=== PATIENT | male | born 1950 | race Caucasian/White ===

== ENCOUNTER 2017-06-27 10:52 | Inpatient (IN) | payer MEDICARE, BC ==
[~2017-06-27] VITALS: Ht 172.7 cm; Wt 77.0 kg
[2017-06-27] VITALS (11 sets, daily range): BP systolic 111–163; BP diastolic 59–90; PULSE 18–145; RESP 18–24; TEMP 98.1–98.4; O2SAT 93–100
[2017-06-27] MEDS ORDERED: AMIODARONE INJ 150 MG in DEXTROSE 5% IN WATER 100ML INJ 100 ML IV ONE ×2 (11:28)
[2017-06-27] MEDS ORDERED: FOLI800T PO (11:30)
[2017-06-27] MEDS ORDERED: TORS20TA PO (11:30)
[2017-06-27] MEDS ORDERED: METO50TA11 PO (11:30)
[2017-06-27] MEDS ORDERED: FERR325T8 PO (11:30)
[2017-06-27] MEDS ORDERED: ATOR40TA16 PO (11:30)
[2017-06-27] MEDS ORDERED: OMEP20TA PO (11:30)
[2017-06-27] MEDS ORDERED: COUM5TAB PO (11:30)
[2017-06-27] MEDS ORDERED: ASPI81CH CHEW (11:30)
[2017-06-27] MEDS ORDERED: LISI2.5T3 PO (11:30)
[2017-06-27] MEDS: SODIUM CHLORIDE 0.9% FLUSH 10 ML FLUSH IVF PRN ×2 (11:41→12:11)
[2017-06-27 11:55] LABS: AUTOMATED NEUTROPHIL # 4.1 TH/MM3 (1.8-7.7); BASOPHIL # 0.1 TH/MM3 (0-0.2); BASOPHIL % 0.9 % (0.0-2.0); EOSINOPHIL # 0.1 TH/MM3 (0-0.4); EOSINOPHIL % 0.9 % (0.0-4.0); HEMATOCRIT 36.6 % (39.0-51.0); LYMPH % 12.7 % (9.0-44.0); LYMPHOCYTE # 1.1 TH/MM3 (1.0-4.8); MEAN CORPUSCULAR HEMOGLOBIN 30.2 PG (27.0-34.0); MEAN CORPUSCULAR HGB CONC 33.6 % (32.0-36.0); MONO % 36.7 % (0.0-8.0); NEUT % 48.8 % (16.0-70.0); PLATELET COUNT 149 TH/MM3 (150-450); RED BLOOD COUNT 4.06 MIL/MM3 (4.50-5.90); RED CELL DISTRIBUTION WIDTH 13.6 % (11.6-17.2); WHITE BLOOD COUNT 8.3 TH/MM3 (4.0-11.0)
[2017-06-27 11:58] LABS: HEMO FLAGS AUTO DIFF
[2017-06-27 12:02] LABS: APTT (PATIENT) 37.8 SEC (24.3-30.1); INTERNATIONAL NORMALIZED RATIO 2.5 RATIO; PROTHROMBIN TIME - PATIENT 28.8 SEC (9.8-11.6)
[2017-06-27] MEDS: AMIODARONE INJ 450 MG in DEXTROSE 5% IN WATE(EXCEL) INJ 241 ML IV SCH ×4 (12:08→19:13)
[2017-06-27 12:16] LABS: ANION GAP 8 MEQ/L (5-15); BICARBONATE 30.7 MEQ/L (21.0-32.0); BLOOD UREA NITROGEN 64 MG/DL (7-18); CHLORIDE 96 MEQ/L (98-107); GLOMERULAR FILTRATION RATE 29 ML/MIN (>89); MAGNESIUM 2.9 MG/DL (1.5-2.5); POTASSIUM 3.4 MEQ/L (3.5-5.1); SODIUM (NA) 135 MEQ/L (136-145)
[2017-06-27 12:21] LABS: CREATINE KINASE 117 U/L (39-308)
[2017-06-27 12:32] LABS: BANDS 1 % (0-6); NEUTROPHIL # MANUAL DIFF 4.3 TH/MM3 (1.8-7.7); POLYS (SEG NEUTROPHILS) 51 % (16-70); WBC DIFF SAMPLE 100
[2017-06-27 12:34] LABS: CKMB 1.6 NG/ML (0.5-3.6); OVALOCYTES 1+ (NORMAL)
[2017-06-27 12:35] LABS: PLATELET ESTIMATE SMEAR NORMAL (NORMAL); PLATELET MORPHOLOGY NORMAL (NORMAL); SCAN/DIFF FINAL DIFF MANUAL
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
--- NOTE | 2017-06-27 13:27 | PD ---
HPI Chief Complaint: Cardiac Complaint Time Seen by Provider: 11:24 Travel History International Travel<30 days: No Contact w/Intl Traveler<30days: No Traveled to known affect area: No History of Present Illness HPI 66-year-old male came to the emergency room with history of shortness of breath and near syncopal episode since yesterday. Patient told me that he has tachycardia. He has ejection fraction of 33% and is waiting to get an AICD. He sees Dr. Arreola and was on amiodarone but they held his amiodarone about 4 weeks ago or so that they can do a procedure. He has had this tachycardia in the past. His heart rate was in 1 teens and had multiple bizarre complexes. No history of chest pain. No history of syncopal episode. He is awake and answering questions appropriately. He appears to be in moderate distress. Patient denies any coronary artery disease history. He also says that he has a care team in [place]. Patient has a [facility] valve and is on Coumadin. He says last week his INR was 3. PFSH Past Medical History Narrative Medical List of his past medical, surgical, social and family history is reviewed from the nursing note. Hx Anticoagulant Therapy: Yes Atrial Fibrillation: Yes Heart Rhythm Problems: Yes Cardiac Catheterization: Yes Cardiomyopathy: Yes Cardiovascular Problems: Yes Patient Takes Glucophage: No Past Surgical History AICD: Yes Valve Replacement: Yes Social History Alcohol Use: Yes (social) Tobacco Use: No Allergies-Medications (Allergen,Severity, Reaction): Coded Allergies: No Known Allergies (Verified Allergy, Unknown, 06/27/17) Comments No known drug allergies. Reported Meds & Prescriptions Reported Meds & Active Scripts Active Reported Torsemide 20 Mg Tab 20 Mg PO BID Coumadin (Warfarin) 5 Mg Tab 5 Mg PO DAILY Omeprazole 20 Mg Tab 20 Mg PO DAILY Metoprolol Succinate ER 24 HR (Metoprolol Succinate) 50 Mg Tab 50 Mg PO DAILY Lisinopril 2.5 Mg Tab 2.5 Mg PO DAILY Folic Acid 0.8 Mg Tab 800 Mcg PO DAILY Ferrous Sulfate 325 Mg (65 Mg Iron) Tablet 325 Mg PO BIDPC Atorvastatin (Atorvastatin Calcium) 40 Mg Tab 40 Mg PO HS Aspirin 81 Mg Chew 81 Mg CHEW DAILY Narrative Medication List of his home medications as reviewed from the nursing note. Review of Systems Except as stated in HPI: all other systems reviewed are Neg Physical Exam Narrative GENERAL: Awake, alert, moderate distress SKIN: Focused skin assessment warm/dry. Pale HEAD: Atraumatic. Normocephalic. EYES: Pupils equal and round. No scleral icterus. No injection or drainage. ENT: No nasal bleeding or discharge. Mucous membranes pink and moist. NECK: Trachea midline. No JVD. CARDIOVASCULAR: Irregular rhythm, tachycardia. No murmur appreciated. RESPIRATORY: No accessory muscle use. Clear to auscultation. Breath sounds equal bilaterally. GASTROINTESTINAL: Abdomen soft, non-tender, nondistended. Hepatic and splenic margins not palpable. MUSCULOSKELETAL: No obvious deformities. No clubbing. No cyanosis. No edema. NEUROLOGICAL: Awake and alert. No obvious cranial nerve deficits. Motor grossly within normal limits. Normal speech. PSYCHIATRIC: Appropriate mood and affect; insight and judgment normal. Data Data Last Documented VS Orders Orders Electrocardiogram (06/27/17 11:28) Basic Metabolic Panel (Bmp) (06/27/17 11:28) Ckmb (Isoenzyme) Profile (06/27/17 11:28) Complete Blood Count With Diff (06/27/17 11:28) Magnesium (Mg) (06/27/17 11:28) Prothrombin Time / Inr (Pt) (06/27/17 11:28) Act Partial Throm Time (Ptt) (06/27/17 11:28) Troponin I (06/27/17 11:28) Chest, Single Ap (06/27/17 11:28) Ecg Monitoring (06/27/17 11:28) Bilateral Bp Monitoring (06/27/17 11:28) Iv Access Insert/Monitor (06/27/17 11:28) Oximetry (06/27/17 11:28) Oxygen Administration (06/27/17 11:28) Sodium Chloride 0.9% Flush (Ns Flush) (06/27/17 11:30) ^ Medication Alert (06/27/17 11:28) ^ Discontinue (06/27/17 11:28) Dextrose 5% In Wate... W/Amiodarone Inj (06/27/17 11:28) Dextrose 5% In Wate... W/Amiodarone Inj (06/27/17 11:38) Vital Signs (Adult) JAY.Q4H (06/27/17 11:28) CKMB (06/27/17 11:30) CKMB% (06/27/17 11:30) Consult Cardiology (06/27/17 ) NPO (06/27/17 12:54) Admit Order (Ed Use Only) (06/27/17 12:55) Labs Laboratory Tests Test 06/27/17 11:30 White Blood Count 8.3 TH/MM3 Red Blood Count 4.06 MIL/MM3 Hemoglobin 12.3 GM/DL Hematocrit 36.6 % Mean Corpuscular Volume 90.0 FL Mean Corpuscular Hemoglobin 30.2 PG Mean Corpuscular Hemoglobin Concent 33.6 % Red Cell Distribution Width 13.6 % Platelet Count 149 TH/MM3 Mean Platelet Volume 9.7 FL Neutrophils (%) (Auto) 48.8 % Lymphocytes (%) (Auto) 12.7 % Monocytes (%) (Auto) 36.7 % Eosinophils (%) (Auto) 0.9 % Basophils (%) (Auto) 0.9 % Neutrophils # (Auto) 4.1 TH/MM3 Lymphocytes # (Auto) 1.1 TH/MM3 Monocytes # (Auto) 3.0 TH/MM3 Eosinophils # (Auto) 0.1 TH/MM3 Basophils # (Auto) 0.1 TH/MM3 CBC Comment AUTO DIFF Differential Total Cells Counted 100 Neutrophils % (Manual) 51 % Band Neutrophils % 1 % Lymphocytes % 10 % Monocytes % 38 % Neutrophils # (Manual) 4.3 TH/MM3 Differential Comment FINAL DIFF MANUAL Platelet Estimate NORMAL Platelet Morphology Comment NORMAL Ovalocytes 1+ Prothrombin Time 28.8 SEC Prothromb Time International Ratio 2.5 RATIO Activated Partial Thromboplast Time 37.8 SEC Blood Urea Nitrogen 64 MG/DL Creatinine 2.28 MG/DL Random Glucose 138 MG/DL Calcium Level 9.3 MG/DL Magnesium Level 2.9 MG/DL Sodium Level 135 MEQ/L Potassium Level 3.4 MEQ/L Chloride Level 96 MEQ/L Carbon Dioxide Level 30.7 MEQ/L Anion Gap 8 MEQ/L Estimat Glomerular Filtration Rate 29 ML/MIN Total Creatine Kinase 117 U/L Creatine Kinase MB 1.6 NG/ML Troponin I 0.03 NG/ML MDM Medical Decision Making Medical Screen Exam Complete: Yes Emergency Medical Condition: Yes Medical Record Reviewed: Yes Interpretation(s) Twelve-lead EKG was reviewed by me. Unknown rhythm, polymorphic PVCs, tachycardia. Heart rate of 120 bpm. Differential Diagnosis Electrolyte abnormality, ACS, arrhythmia, nonsustained VT's Narrative Course 1 PM patient was having nonsustained VT's initially based on his history I started him on amiodarone bolus and drip. I went back and reassessed him a little while ago. His heart rate was down in the 80s to 90s although when he got excited while talking it went up to 1 teens again. But he says he has been feeling better. I discussed the case with Dr. Arreola who is his animal herder and he agreed with the plan. He wanted the coffee plantation worker Dr. Santiago to be consulted. I mentioned that he should get his AICD placed this time and he agreed. I discussed the case with the family and consumer sciences professor was accepted. Patient will go to CICU. Critical Care Narrative Aggregate critical care time was 60 minutes. Time to perform other separately billable procedures was not included in the critical care time. My time did not include minutes spent treating any other patients simultaneously or on activities that did not directly contribute to the patient's treatment. The services I provided to this patient were to treat and/or prevent clinically significant deterioration that could result in: Polymorphic PVCs, nonsustained VT his, amiodarone bolus and drip I provided critical care services requiring my management, as noted below: Chart data review, documentation time, medication orders and management, vital sign assessments/reviewing monitor data, ordering and reviewing lab tests, ordering and interpreting/reviewing x-rays and diagnostic studies, care of the patient and discussion of the patient with the admitting physicians. Procedures EKG Prior to Arrival: No Physician Communication Physician Communication Dr. Arreola Diagnosis Primary Impression: Multifocal PVCs with pairing Additional Impressions: NSVT (nonsustained ventricular tachycardia) Tachycardia, unspecified Renal insufficiency Admitting Information Admitting Physician Requests: Admit Scripts Potassium Chloride ER (Potassium Chloride ER) 20 Meq Tab 20 MEQ PO BID for Electrolyte Replacement, #60 TAB 0 Refills Prov: Nils Lilly MD R2 06/30/17 Allopurinol (Allopurinol) 100 Mg Tab 100 MG PO DAILY for Gout, #30 TAB 0 Refills Prov: Nils Lilly MD R2 06/30/17 Warfarin (Coumadin) 5 Mg Tab 5 MG PO DAILY@1600 for 30 Days, #30 TAB Prov: Nils Lilly MD R2 06/30/17 Amiodarone (Amiodarone) 200 Mg Tab 200 MG PO DAILY for 30 Days, #30 TAB Take 200mg daily starting on 07/06 Prov: Micaela Xiao MD R2 06/30/17 Amiodarone (Amiodarone) 200 Mg Tab 400 MG PO BID for 6 Days, #24 TAB Take 400mg BID; last day on 07/05 Prov: Micaela Xiao MD R2 06/30/17 Lety Gold MD Jun 27, 2017 13:27
--- NOTE | 2017-06-27 13:28 | RADRPT ---
EXAM DATE/TIME: 06/27/2017 12:02 [facility] COMPARISON: No previous studies available for comparison. INDICATIONS : Chest pain, shortness of breath. MEDICAL HISTORY : None. SURGICAL HISTORY : Aortic valve replacement. ENCOUNTER: Initial ACUITY: 1 day PAIN SCORE: 6/10 LOCATION: Bilateral chest FINDINGS: There is advanced cardiomegaly. The patient is post median sternotomy. There are mild bronchiectatic changes in the perihilar regions bilaterally. The lungs are otherwise clear. The bony structures are intact. CONCLUSION: 1. Moderate cardiomegaly. Patient is post median sternotomy. The middle sternal wires no longer intac t Casimiro Amaya MD on June 27, 2017 at 13:18 Board Certified Radiologist. This report was verified electronically.
[2017-06-27] MEDS ORDERED: NALOXONE HCL 0.4 MG/ML AMP IV PUSH PRN (13:30)
[2017-06-27] MEDS ORDERED: LACTULOSE SYRUP 20 GM/30 ML CUP PO PRN (13:30)
[2017-06-27] MEDS ORDERED: SENNOSIDES 8.6 MG TAB PO PRN (13:30)
[2017-06-27] MEDS ORDERED: ACETAMINOPHEN 325 MG TAB PO PRN (13:30)
[2017-06-27] MEDS ORDERED: BISACODYL 10 MG SUPP RECTAL PRN (13:30)
[2017-06-27] MEDS ORDERED: SODIUM CHLORIDE 0.9% FLUSH 10 ML FLUSH IV FLUSH PRN (13:30)
[2017-06-27] MEDS ORDERED: ONDANSETRON HCL 4 MG/2 ML VIAL IVP PRN (13:30)
[2017-06-27] MEDS ORDERED: MAGNESIUM HYDROXIDE SUSP 30 ML CUP PO PRN (13:30)
[2017-06-27] MEDS ORDERED: SODIUM CHLORID 0.9% 500 ML INJ 500 ML IV ONE (13:45)
[2017-06-27] MEDS ORDERED: POTASSIUM CHLORIDE 10 MEQ CONTROLLED RELEASE TAB PO ONE (14:00)
[2017-06-27] MEDS: SODIUM CHLOR 0.9% 1000 ML INJ 1,000 ML IV SCH ×2 (14:03→20:53)
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
[2017-06-27] MEDS: FERROUS SULFATE 325 MG (65 MG ELEMENTAL IRON) TAB PO SCH (18:03)
[2017-06-27] MEDS: DOCUSATE SODIUM 50 MG/SENNA 8.6 MG TAB PO SCH (20:53)
[2017-06-27] MEDS: SODIUM CHLORIDE 0.9% FLUSH 10 ML FLUSH IV FLUSH SCH (20:53)
[2017-06-27] MEDS: ATORVASTATIN 40 MG TAB PO SCH (20:53)
[2017-06-27] MEDS ORDERED: TORSEMIDE 20 MG TAB PO SCH (21:00)
[2017-06-28] VITALS (13 sets, daily range): BP systolic 96–136; BP diastolic 61–87; PULSE 60–88; RESP 14–31; TEMP 97–98; O2SAT 93–100
[2017-06-28] MEDS: AMIODARONE INJ 450 MG in DEXTROSE 5% IN WATE(EXCEL) INJ 241 ML IV SCH ×6 (02:48→17:58)
[2017-06-28 05:13] LABS: PROTHROMBIN TIME - PATIENT 23.1 SEC (9.8-11.6)
[2017-06-28 05:18] LABS: AUTOMATED NEUTROPHIL # 3.1 TH/MM3 (1.8-7.7); BASOPHIL # 0.1 TH/MM3 (0-0.2); BASOPHIL % 0.8 % (0.0-2.0); EOSINOPHIL # 0.1 TH/MM3 (0-0.4); EOSINOPHIL % 1.3 % (0.0-4.0); HEMATOCRIT 32.2 % (39.0-51.0); LYMPH % 16.4 % (9.0-44.0); LYMPHOCYTE # 1.1 TH/MM3 (1.0-4.8); MEAN CELL VOLUME 90.4 FL (80.0-100.0); MEAN CORPUSCULAR HEMOGLOBIN 30.8 PG (27.0-34.0); MEAN CORPUSCULAR HGB CONC 34.1 % (32.0-36.0); NEUT % 47.5 % (16.0-70.0); PLATELET COUNT 116 TH/MM3 (150-450); RED BLOOD COUNT 3.56 MIL/MM3 (4.50-5.90)
[2017-06-28 05:29] LABS: BICARBONATE 30.2 MEQ/L (21.0-32.0); MAGNESIUM 2.8 MG/DL (1.5-2.5); POTASSIUM 3.8 MEQ/L (3.5-5.1); URIC ACID 12.3 MG/DL (2.6-7.2)
[2017-06-28 05:31] LABS: HEMO FLAGS AUTO DIFF
[2017-06-28 07:12] LABS: OVALOCYTES 1+ (NORMAL)
[2017-06-28 07:13] LABS: SCAN/DIFF AUTO DIFF CONFIRMED
[2017-06-28] MEDS ORDERED: HEPARIN-D5W 25,000 U/250 ML 250 ML IV PRN (08:30)
[2017-06-28 08:40] LABS: AUTOMATED NEUTROPHIL # 3.1 TH/MM3 (1.8-7.7); BASOPHIL # 0.1 TH/MM3 (0-0.2); EOSINOPHIL # 0.1 TH/MM3 (0-0.4); EOSINOPHIL % 1.2 % (0.0-4.0); LYMPH % 17.1 % (9.0-44.0); LYMPHOCYTE # 1.1 TH/MM3 (1.0-4.8); MEAN CELL VOLUME 90.6 FL (80.0-100.0); MEAN CORPUSCULAR HEMOGLOBIN 30.6 PG (27.0-34.0); MEAN CORPUSCULAR HGB CONC 33.7 % (32.0-36.0); MONO % 33.5 % (0.0-8.0); NEUT % 47.2 % (16.0-70.0); PLATELET COUNT 130 TH/MM3 (150-450); RED BLOOD COUNT 3.75 MIL/MM3 (4.50-5.90); RED CELL DISTRIBUTION WIDTH 13.7 % (11.6-17.2); WHITE BLOOD COUNT 6.6 TH/MM3 (4.0-11.0)
[2017-06-28 08:46] LABS: HEMO FLAGS AUTO DIFF
[2017-06-28] MEDS ORDERED: WARFARIN SOD 5 MG TAB PO SCH (09:00)
[2017-06-28] MEDS: FERROUS SULFATE 325 MG (65 MG ELEMENTAL IRON) TAB PO SCH ×2 (09:00→18:00)
[2017-06-28] MEDS: FOLIC ACID 1 MG TAB PO SCH (09:00)
[2017-06-28] MEDS: PANTOPRAZOLE SOD 20 MG DELAYED RELEASE TAB PO SCH (09:00)
[2017-06-28] MEDS ORDERED: ASPIRIN 81 MG CHEW TAB CHEW SCH (09:00)
[2017-06-28] MEDS ORDERED: PILL SPLITTER OTHER PRN (09:00)
[2017-06-28] MEDS: SODIUM CHLORIDE 0.9% FLUSH 10 ML FLUSH IV FLUSH SCH ×2 (09:00→19:58)
[2017-06-28] MEDS ORDERED: LISINOPRIL 5 MG TAB PO SCH (09:00)
[2017-06-28] MEDS: DOCUSATE SODIUM 50 MG/SENNA 8.6 MG TAB PO SCH ×2 (09:00→19:58)
[2017-06-28 09:09] LABS: WHITE BLOOD COUNT 6.5 TH/MM3 (4.0-11.0)
[2017-06-28] MEDS: TORSEMIDE 20 MG TAB PO SCH ×2 (10:09→17:59)
[2017-06-28] MEDS: METOPROLOL SUCCINATE 50 MG EXTENDED RELEASE TAB PO SCH (10:10)
[2017-06-28] MEDS: LISINOPRIL 5 MG TAB PO SCH (10:10)
[2017-06-28 10:48] LABS: HEMOGLOBIN A1a 0.7 %; HEMOGLOBIN A1b 1.6 %; HEMOGLOBIN Ao 84.9 %; HEMOGLOBIN LA1C 2.5 %; HEMOGLOBIN P3 5.8 %
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
--- NOTE | 2017-06-28 12:05 | EKG ---
Date Performed: 06/27/2017 Time Performed: 11:23:09 PTAGE: 66 years EKG: Atrial fibrillation with increased ventricular rate Ventricular premature beats and also gonzalez spect Amanda phenomenon Nonspecific intraventricular conduction delay NO PREVIOUS TRACING DOCTOR: Celestine Dietz Interpretating Date/Time 06/28/2017 12:05:00
--- NOTE | 2017-06-28 12:05 | EKG ---
Date Performed: 06/27/2017 Time Performed: 16:10:13 PTAGE: 66 years EKG: Atrial fibrillation with increased ventricular rate Ventricular premature beats and also gonzalez spect Amanda phenomenon Nonspecific intraventricular conduction delay PREVIOUS TRACING : 06/27/2017 11.23 Compared to prior tracing no significant change DOCTOR: Celestine Dietz Interpretating Date/Time 06/28/2017 12:05:47
--- NOTE | 2017-06-28 12:07 | EKG ---
Date Performed: 06/27/2017 Time Performed: 18:44:43 PTAGE: 66 years EKG: Atrial fibrillation with controlled ventricular rate Ventricular premature complexes Intrav entricular conduction delay PREVIOUS TRACING 05/27/17 Compared to the prior tracing, the rate is better controlled th e ventricular ectopy is less DOCTOR: Celestine Dietz Interpretating Date/Time 06/28/2017 12:06:46
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
[2017-06-28] MEDS ORDERED: HEPARIN SODIUM - IV 10,000 UNITS/10 ML VIAL IV PRN (14:30)
[2017-06-28] MEDS ORDERED: HEPARIN - 10,000 UNITS/ML IV ADDITIVE IV PRN (14:30)
[2017-06-28] MEDS ORDERED: WARFARIN SOD 7.5 MG TAB PO ONE (16:00)
[2017-06-28] MEDS: ATORVASTATIN 40 MG TAB PO SCH (19:58)
[2017-06-28] MEDS ORDERED: TEMAZEPAM 7.5 MG CAP PO ONE (22:45)
[2017-06-29] VITALS (17 sets, daily range): BP systolic 89–115; BP diastolic 57–71; PULSE 56–83; RESP 12–24; TEMP 97.1–98.4; O2SAT 96–100
[2017-06-29] MEDS: AMIODARONE INJ 450 MG in DEXTROSE 5% IN WATE(EXCEL) INJ 241 ML IV SCH ×4 (02:15→16:43)
[2017-06-29 05:17] LABS: HEMATOCRIT 32.2 % (39.0-51.0); MEAN CELL VOLUME 90.6 FL (80.0-100.0); MEAN CORPUSCULAR HEMOGLOBIN 30.2 PG (27.0-34.0); MEAN CORPUSCULAR HGB CONC 33.4 % (32.0-36.0); PLATELET COUNT 113 TH/MM3 (150-450); RED BLOOD COUNT 3.55 MIL/MM3 (4.50-5.90); RED CELL DISTRIBUTION WIDTH 13.9 % (11.6-17.2); REVIEW FLAG FINAL; WHITE BLOOD COUNT 5.6 TH/MM3 (4.0-11.0)
[2017-06-29 05:30] LABS: APTT (PATIENT) 34.8 SEC (24.3-30.1); INTERNATIONAL NORMALIZED RATIO 1.8 RATIO; PROTHROMBIN TIME - PATIENT 20.4 SEC (9.8-11.6)
[2017-06-29 05:47] LABS: BICARBONATE 31.1 MEQ/L (21.0-32.0)
[2017-06-29] MEDS ORDERED: ceFAZolin INJ 1,000 MG VIAL ONE (07:50)
[2017-06-29] MEDS ORDERED: LIDOCAINE HCL 2% 50 ML VIAL ONE ×2 (07:50→08:04)
[2017-06-29] MEDS ORDERED: VANCOMYCIN HCL 1000 MG VIAL ONE (07:50)
[2017-06-29] MEDS ORDERED: VANCOMYCIN 500 MG VIAL ONE (07:50)
[2017-06-29] MEDS ORDERED: PROPOFOL 200 MG/20 ML AMP ONE ×2 (07:52→08:26)
[2017-06-29] MEDS ORDERED: MIDAZOLAM HCL 2 MG/2 ML VIAL ONE (07:52)
[2017-06-29] MEDS ORDERED: PHENYLEPH/NS 1000 MCG/10 ML SYR ONE (07:52)
[2017-06-29] MEDS ORDERED: ePHEDrine/NS 25 MG/5 ML SYR ONE ×2 (07:53→08:40)
[2017-06-29] MEDS ORDERED: LIDOCAINE HCL 2% 100 MG/5 ML SYRINGE ONE (08:43)
[2017-06-29] MEDS ORDERED: PHENYLEPHRINE HCL 10 MG/ML VIAL ONE (08:51)
[2017-06-29] MEDS: FERROUS SULFATE 325 MG (65 MG ELEMENTAL IRON) TAB PO SCH ×2 (09:00→16:57)
[2017-06-29] MEDS ORDERED: ACETAMINOPHEN/CODEINE 300 MG/30 MG TAB PO PRN ×2 (09:00)
[2017-06-29] MEDS: PANTOPRAZOLE SOD 20 MG DELAYED RELEASE TAB PO SCH (09:00)
[2017-06-29] MEDS ORDERED: ONDANSETRON HCL 4 MG/2 ML VIAL IV PUSH PRN (09:00)
[2017-06-29] MEDS: FOLIC ACID 1 MG TAB PO SCH (09:00)
[2017-06-29] MEDS: TORSEMIDE 20 MG TAB PO SCH ×2 (09:00→16:57)
[2017-06-29] MEDS: DOCUSATE SODIUM 50 MG/SENNA 8.6 MG TAB PO SCH ×2 (09:00→21:32)
[2017-06-29] MEDS: LISINOPRIL 5 MG TAB PO SCH (09:00)
[2017-06-29] MEDS: SODIUM CHLORIDE 0.9% FLUSH 10 ML FLUSH IV FLUSH SCH ×2 (09:00→21:00)
[2017-06-29] MEDS ORDERED: TEMAZEPAM 15 MG CAP PO PRN (09:00)
[2017-06-29] MEDS: AMIODARONE 200 MG TAB PO SCH ×2 (09:00→21:32)
[2017-06-29] MEDS: METOPROLOL SUCCINATE 50 MG EXTENDED RELEASE TAB PO SCH (09:00)
--- NOTE | 2017-06-29 09:02 | CATHPROC ---
Vacation Your Way HIS Report Study Information Study Number Scheduled Start Study Start [id number] 06/29/2017 Jun 29 2017 7:46AM Referring Institution Admit Source Facility Department 1 Other [facility] Office Rn Physician and Clinical Staff Initial Jessie Sims Medical Referral Coordinator Sim Mcgrath,RT(R) Other Anesthesia, WIND UP OPERATOR Recorder Sara Gonzalez,CAMPOSRBatsheva Scrub Elena Vasquez,RT(R) TECH2 Procedures Performed Procedure Cardioversion Lead Insertion Equipment Time Metal Milling Machine Operator Description Size Mfg Part Number Used/Scraped [employer]/ EP DEFIBRILLATOR, EMBLEM MRI S- 08:46 A219 Used PACER ICD [employer]/ EP 08:25 LEAD, EMBLEM S-ICD 45CM 45CM 3401 Used PACER DERMABOND, ADHESIVE SKIN [id number] 08:01 CORDIS/PACER * Used GLUE MINI *[id number] 08:01 ITC INDUSTRIES SUTURE, STRIP PLUS 1/2" * Used *[id number] 08:01 MEDLINE PACER ASHRAF, LIMB * 2530 *[id number] Used [id number] 08:01 MEDLINE PACER PACK, PACER CUSTOM * Used *[id number] 08:07 Needle Sponge Count 2 2 Used 08:08 Needle Sponge Count 2 22 Used 08:39 Needle Sponge Count 2 22 Used 08:50 Needle Sponge Count 2 22 Used 08:50 Needle Sponge Count 20 200 Used 08:07 Needle Sponge Count 20 200 Used 08:39 Needle Sponge Count 20 200 Used 08:39 Needle Sponge Count 4 4 Used 08:18 Needle Sponge Count 4 4 Used 08:50 Needle Sponge Count 4 4 Used SUTURE, 0 ETHIBOND [CT1] ([id number]), 8pk SUTURE, 2-0 VICRYL [CT1] ([id number]) SUTURE, 2-0 VICRYL [CT1] ([id number]) [id number] 08:01 [employer],WARM AIR CCL * Used *[id number] [facility] PAD, ELECTROSURGICAL 08:01 * [id number] *[id number] Used SURGICAL GROUNDING ORANGE [id number] 08:01 [employer]SELL. ELECTRODE, PRO-PADZ BIPHASIC * Used *[id number] Equipment Model, Serial, Lot Number and Expiration Data Description Model Number Serial Number Lot Number Expiration Date DEFIBRILLATOR, EMBLEM MRI S- [id number] [id number] 03-01-2019 ICD LEAD, EMBLEM S-ICD 45CM 3401 [id number] 12-01-2018 History: Current Medications Medication Dosage/Unit Route Frequency Last Date/Time Taken LISINOPRIL LOPRESSOR Statins (any) ASA Coumadin History: Allergies Allergy Reaction NKDA History: Risk Factors Hypertension Dyslipidemia Previous NE Previous Heart Failure Yes Yes Yes Yes History: Symptoms/Diagnosis Selection Items Palpitations SOB Medication Medication Total Dose (Bolus/Oral) Medication Total Dosage/Unit 2% XYLOCAINE 50 mL LIDOCAINE 100 mg Medications (Bolus/Oral) Medication Time Given Dosage/Unit Administered By Reason 2% XYLOCAINE 06/29/2017 8:20:12 AM 50 mL Jessie Santiago For pain 50 mL 2% XYLOCAINE given in lab by Jessie Santiago via Subcutaneous. Ordered by Jessie Santiago. Reason: For pain. left chest LIDOCAINE 06/29/2017 8:43:36 AM 50 mg Anesthesia, WIND UP OPERATOR As per physicians ve rbal order 50 mg LIDOCAINE given in lab by Anesthesia, WIND UP OPERATOR in Left Antecubital via Peripheral IV. Ordered by Jessie Rincon. Reason: As per physicians verbal order. LIDOCAINE 06/29/2017 8:50:55 AM 50 mg Anesthesia, WIND UP OPERATOR As per physicians ve rbal order 50 mg LIDOCAINE given in lab by Anesthesia, WIND UP OPERATOR in Left Antecubital via Peripheral IV. Ordered by Jessie Rincon. Reason: As per physicians verbal order. Medication (Drip) Medication Time Given Dosage/Unit Concentration/Unit Diluent (ml) Solution Amiodarone Drip 06/29/2017 7:52:49 AM 0.5 mg/min 450 mg 250 D5W Patient arrived on 0.5 mg/min Amiodarone Drip in Left Antecubital via Peripheral IV. Pump/Drip Flow = 16.67 ml/hr using D5W with a concentration of 450 mg in 250 ml. Ordered by Jessie Santiago. Reason: As per physicians verbal order. ANCEF 06/29/2017 8:00:00 AM 2 g 2 g ANCEF given in lab by Anesthesia, WIND UP OPERATOR in Left Antecubital via Peripheral IV. Ordered by Naty Santiago. Reason: As per physicians verbal order. IV Solutions 06/29/2017 7:53:17 AM 0 mL (IV) NaCl .9 Patient arrived on IV Solutions given by Anesthesia, WIND UP OPERATOR in Left Antecubital via Peripheral IV. Pump /Drip Flow = 50 ml/hr using NaCl .9. Ordered by Jessie Santiago. VANCOMYCIN DRIP 06/29/2017 8:00:01 AM 1 g 1 g VANCOMYCIN DRIP given in lab by Anesthesia, WIND UP OPERATOR in Left Antecubital via Peripheral IV. Ordered b y Jessie Santiago. Reason: As per physicians verbal order. Initial Case Assessment Cardiovascular HR NIBP 76 125/67 Edema Present Skin color Skin None Normal Warm Dry Neurological State Oriented to time-place- Alert Moves all extremities person Respiration - General Respiration Rate SpO2 (%) (B/min) 18 100 Final Case Assessment Cardiovascular HR NIBP 66 103/57 Edema Present Skin color Skin None Normal Warm Dry Neurological State Oriented to time-place- Alert Moves all extremities person Respiration - General Respiration Rate SpO2 (%) (B/min) 18 100 Chronological Log Time Study Chronological Log 7:40:00 Patient arrived via Bed. 7:42:00 Patient Name, D.O.B, / Armband Verified By R.N. 7:43:00 Anesthesia at bedside. Assumes care of patient. Darrius OWENS 7:50:25 Consent signed by the physician and the patient and verified by the Office Rn staff. 7:50:29 Pre-op and post- op instructions given; patient acknowledges understanding of instructions. 7:50:32 Verbal Stimulation=2 Physical Stimulation=2 Airway=2 Respiration=2 TOTAL=10. (0=absent, 1=l imited, 2=present) 7:51:20 Presedation assessment performed by Office Rn RN. 7:51:23 Patient has been NPO for More than 6Hrs. 7:51:25 Skin Breakdown- none 7:51:34 Patient Warmer Placed on the Table. 7:51:36 Disposable Defibrillator Pads Placed On Patient. 7:51:39 Joseph Prominences Protected 7:52:09 A # 20 IV was noted in the Antecubital (left). Grade = ~GRADE~ Assessment: Initial Case, HR=76 BPM, FYHO=459/67 mmhg, Edema=None, Color=Normal, Skin = Warm, Dr y 7:52:21 Neurological: State=Alert, Ox3, DYE Respiration: Resp=18 B/min, XyX8=601 % Patient arrived on 0.5 mg/min Amiodarone Drip in Left Antecubital via Peripheral IV. Pump/Drip F low = 16.67 ml/hr 7:52:49 using D5W with a concentration of 450 mg in 250 ml. Ordered by Jessie Santiago. Reason: As per physicians verbal order. Patient arrived on IV Solutions given by Anesthesia, WIND UP OPERATOR in Left Antecubital via Peripheral IV. Pump/Drip Flow = 50 7:53:17 ml/hr using NaCl .9. Ordered by Jessie Santiago. 7:53:44 History and physical on the chart or being dictated. 7:53:46 Table restraints applied according to hospital policy 7:53:51 Left Upper Chest Prepped Times Two. 7:54:02 Bovie ground pad applied to: right thigh 7:54:10 2% CHLORHEXIDINE GLUCONATE WASH AND NASAL SWIPE DONE PRIOR TO PROCEDURE. 2 g ANCEF given in lab by Anesthesia, WIND UP OPERATOR in Left Antecubital via Peripheral IV. Ordered by Jessie Ewing. Reason: As 8:00:00 per physicians verbal order. 1 g VANCOMYCIN DRIP given in lab by Anesthesia, WIND UP OPERATOR in Left Antecubital via Peripheral IV. Orde red by Pamela, 8:00:01 Jessie. Reason: As per physicians verbal order. First Sponge And Instrument Count Done by Sara Gonzalez, CAMPOSRN. 8:07:10 Hypo's: 4, Sponges: 20, Bovie/scratch: 2 Sutures: 10, Blades: 1, Instruments: 26, Syveck Patches: ~SYVECK PATCH~ 8:08:52 Reference ECG taken 8:10:00 MD arrived. 8:15:57 Immediate Presedation assesment performed by physician. Time Out. Correct patient, procedure, procedure equipment, site and side verified with physician present. Time 8:20:00 concurred by MD, individual staff and WIND UP OPERATOR. Time Out #2 - Consents verified, patient in correct position, all results are labled and display ed, safety precautions 8:20:04 taken, antibiotics administered. Time out concurred by MD, individual staff and WIND UP OPERATOR in procedur e 8:20:08 Case Start 50 mL 2% XYLOCAINE given in lab by Jessie Santiago via Subcutaneous. Ordered by Jessie Santiago. Kathy son: For pain. 8:20:12 left chest 8:23:07 Surgical Incision Made. 8:23:09 A pocket was created at the 1. left mid axillary A LEAD, EMBLEM S-ICD 45CM 45CM was inserted and positioned in the RV after being tunnelled under skin and sutured 8:28:24 to sternal notch then sutured. 8:28:46 Lead placement verified under fluoroscopy 8:32:51 The RV lead impedance and threshold being tested. 8:32:54 The RV lead was sutured to the fascia. 8:38:49 Pocket flushed with antibiotic solution 8:38:55 A implantable was connected and placed in the pocket. Second Sponge And Instrument Count Done by Sim Mcgrath RT(R). 8:39:02 Hypo's: 4, Sponges: 20, Bovie/scratch: 2 Sutures: ~SUTURE~, Blades: 1, Instruments: ~INSTRU~, Syveck Patches: ~SYVECK PATCH~ 8:41:05 The pocket was closed. 8:41:08 Implant Procedure was performed. 8:41:18 A ICD Implant . (Single) SQ lead and ICD 8:42:05 Bedside Report will be given. 8:42:09 Steri-strips and a sterile dressing applied to site. 50 mg LIDOCAINE given in lab by Anesthesia, WIND UP OPERATOR in Left Antecubital via Peripheral IV. Ordered by Jessie Santiago. 8:43:36 Reason: As per physicians verbal order. The Final Sponge And Instrument Count Done by Sim Mcgrath RT(R). 8:48:59 Hypo's: 4, Sponges: 20, Bovie/scratch: 2 Sutures: 10, Blades: 1, Instruments: 26, Syveck Patches: 0 50 mg LIDOCAINE given in lab by Anesthesia, WIND UP OPERATOR in Left Antecubital via Peripheral IV. Ordere d by Jessie Santiago. 8:50:55 Reason: As per physicians verbal order. 8:52:46 ECG rhythm of VT noted. Patient cardioverted at 200 joules. Success sync on 8:57:00 Case End 8:59:49 PACU called. Spoke to Andre Assessment: Final Case, HR=66 BPM, FFDP=887/57 mmhg, Edema=None, Color=Normal, Skin = Warm, Dr martinez 9:00:02 Neurological: State=Alert, Ox3, DYE Respiration: Resp=18 B/min, WoC5=085 % 9:01:06 Sterile dressing applied to site 9:01:09 No case complications noted. 9:01:12 Cine recording checked. 9:01:16 Implantable Device card placed in patient's chart. 9:15:00 Patient moved to stretcher and transported to PACU in stable condition. End Study - Contrast Media Used In Study Contrast Total Opened (mL) Total Used (mL) Total Wasted (mL) Unspecified 0 0 0 End Study - Radiation Exposure Fluoro Time (minutes) 0.0 End Study - Patient Disposition Complications Transferred To Interventional Outcome No Telemetry Bed successful
[2017-06-29] MEDS ORDERED: DO NOT ADM ANY ANTICOAGULANT DRUGS PRN (10:00)
[2017-06-29] MEDS ORDERED: WARFARIN SOD 10 MG TAB PO ONE (10:15)
--- NOTE | 2017-06-29 10:23 | RADRPT ---
EXAM DATE/TIME: 06/29/2017 09:30 [place] COMPARISON: CHEST SINGLE AP, June 27, 2017, 12:02. INDICATIONS : Post pacemaker. MEDICAL HISTORY : None. SURGICAL HISTORY : Aortic valve replacement. CABG. ENCOUNTER: Subsequent ACUITY: 1 day PAIN SCORE: Non-responsive. LOCATION: Bilateral chest FINDINGS: Pacemaker left lateral chest. Lead midline. Aortic valve replacement noted. Compensated cardiomega ly. CONCLUSION: Pacer as described above. Mono Amaya MD FACR on June 29, 2017 at 10:20 Board Certified Radiologist. This report was verified electronically.
[2017-06-29] MEDS ORDERED: AMIODARONE 200 MG TAB PO ONE (11:00)
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
[2017-06-29] MEDS: ceFAZolin 2 GM PREMIX 50 ML IV SCH ×2 (14:00→21:32)
--- NOTE | 2017-06-29 14:36 | EKG ---
Date Performed: 06/29/2017 Time Performed: 09:47:34 PTAGE: 66 years EKG: Sinus rhythm FIRST DEGREE AV BLOCK MARKED LEFT AXIS DEVIATION LEFT BUNDLE BRANCH BLOCK ABNORMAL ECG PREVIOUS TRACING : 06/27/2017 18.44 Compared to prior tracing no significant change DOCTOR: Narcisa Schilling Interpretating Date/Time 06/29/2017 14:35:55
[2017-06-29] MEDS ORDERED: WARFARIN SOD 5 MG TAB PO SCH (16:00)
[2017-06-29] MEDS ORDERED: AMIODARONE 200 MG TAB PO SCH (21:00)
[2017-06-29] MEDS: ATORVASTATIN 40 MG TAB PO SCH (21:32)
[2017-06-30] VITALS (19 sets, daily range): BP systolic 106–139; BP diastolic 59–70; PULSE 59–92; RESP 18–20; TEMP 97.9–98.6; O2SAT 98
[2017-06-30] MEDS: AMIODARONE INJ 450 MG in DEXTROSE 5% IN WATE(EXCEL) INJ 241 ML IV SCH ×6 (00:18→15:28)
[2017-06-30] MEDS: ceFAZolin 2 GM PREMIX 50 ML IV SCH (05:18)
[2017-06-30 06:51] LABS: INTERNATIONAL NORMALIZED RATIO 1.9 RATIO; PROTHROMBIN TIME - PATIENT 21.4 SEC (9.8-11.6)
[2017-06-30 07:00] LABS: BICARBONATE 27.1 MEQ/L (21.0-32.0); POTASSIUM 3.3 MEQ/L (3.5-5.1)
[2017-06-30] MEDS ORDERED: POTASSIUM CHLORIDE 10 MEQ CONTROLLED RELEASE TAB PO ONE (07:15)
--- NOTE | 2017-06-30 08:08 | EKG ---
Date Performed: 06/30/2017 Time Performed: 04:16:50 PTAGE: 66 years EKG: Atrial fibrillation with PVC(s) Left axis deviation IV conduction defect Poor R wave progre ssion - cannot rule out anteroseptal infarct Lateral ST-T changes are nonspecific Low QRS voltages in limb leads Since previous tracing, now in AF Abnormal ECG PREVIOUS TRACING : 06/29/2017 09.47 DOCTOR: Edith Pate Interpretating Date/Time 06/30/2017 08:08:03
[2017-06-30] MEDS: FERROUS SULFATE 325 MG (65 MG ELEMENTAL IRON) TAB PO SCH (08:11)
[2017-06-30] MEDS: AMIODARONE 200 MG TAB PO SCH (08:11)
[2017-06-30] MEDS: METOPROLOL SUCCINATE 50 MG EXTENDED RELEASE TAB PO SCH (08:11)
[2017-06-30] MEDS: TORSEMIDE 20 MG TAB PO SCH (08:11)
[2017-06-30] MEDS: LISINOPRIL 5 MG TAB PO SCH (08:12)
[2017-06-30] MEDS: PANTOPRAZOLE SOD 20 MG DELAYED RELEASE TAB PO SCH (08:12)
[2017-06-30] MEDS: FOLIC ACID 1 MG TAB PO SCH (08:13)
[2017-06-30] MEDS: DOCUSATE SODIUM 50 MG/SENNA 8.6 MG TAB PO SCH (08:13)
[2017-06-30] MEDS: SODIUM CHLORIDE 0.9% FLUSH 10 ML FLUSH IV FLUSH SCH (08:13)
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
[2017-06-30] MEDS ORDERED: AMIO200T PO ×2 (10:52)
--- NOTE | 2017-06-30 10:56 | HHI.DCPOC ---
Discharge Care Plan Diagnosis: (1) NSVT (nonsustained ventricular tachycardia) (2) Gout (3) HTN (hypertension) (4) Elevated blood uric acid level (5) MICHAEL (acute kidney injury) Goals to Promote Your Health * To prevent worsening of your condition and complications * To maintain your health at the optimal level Directions to Meet Your Goals Take your medications as prescribed Follow your dietary instruction Follow activity as directed Keep your appointments as scheduled Take your immunizations and boosters as scheduled If your symptoms worsen call your PCP, if no PCP go to Urgent Care Center or Emergency Room Smoking is Dangerous to Your Health. Avoid second hand smoke Call the 24-hour hour crisis hotline for domestic abuse at Micaela Xiao MD R2 Jun 30, 2017 10:56
[2017-06-30] MEDS ORDERED: COUM5TAB PO (11:19)
[2017-06-30] MEDS ORDERED: ALLO100T PO (11:19)
--- NOTE | 2017-06-30 11:44 | HHI.PR ---
Subjective Remarks Feeling ok Objective Vital Signs Date Time Temp Pulse Resp B/P (MAP) Pulse Ox O2 Delivery O2 Flow Rate FiO2 06/30/17 11:34 98.2 74 18 111/69 (83) 06/30/17 11:34 Room Air 06/30/17 11:00 59 06/30/17 10:00 68 06/30/17 09:00 74 06/30/17 08:00 70 06/30/17 07:00 81 06/30/17 07:00 97.9 90 20 106/69 (81) 06/30/17 07:00 Room Air 06/30/17 06:07 66 06/30/17 05:06 69 06/30/17 04:30 84 06/30/17 04:21 Room Air 06/30/17 04:21 98.1 92 139/59 (85) 98 06/30/17 03:00 79 06/30/17 02:00 78 06/30/17 01:00 68 06/30/17 00:00 74 06/29/17 23:00 Room Air 06/29/17 23:00 98.4 83 115/69 (84) 98 06/29/17 23:00 67 06/29/17 22:00 72 06/29/17 21:00 76 06/29/17 20:00 98.0 73 101/71 (81) 100 06/29/17 20:00 Room Air 06/29/17 20:00 78 06/29/17 19:00 61 06/29/17 18:14 72 06/29/17 17:08 73 06/29/17 16:51 99 21 06/29/17 16:43 69 92/63 06/29/17 16:02 70 06/29/17 15:39 69 06/29/17 15:39 97.6 69 12 92/63 (73) 99 06/29/17 15:39 100 Room Air 06/29/17 14:12 66 06/29/17 13:14 68 06/29/17 13:14 100 Room Air I/O 06/29/17 06/29/17 06/29/17 06/30/17 06/30/17 06/30/17 07:00 15:00 23:00 07:00 15:00 23:00 Intake Total 215 ml 609 ml 695 ml 480 ml Output Total 200 ml 100 ml 325 ml Balance 15 ml 509 ml 695 ml 155 ml Intake Oral 640 ml 480 ml IV Total 215 ml 109 ml 55 ml Other 500 ml Output Urine Total 200 ml 325 ml Estimated Blood Loss 100 ml Other 0 ml # Voids 1 2 1 # Bowel Movements 1 Result Diagram: 06/29/17 0450 06/30/17 0535 Imaging Alert, fully oriented, eating Lungs: ventilated Heart: S1, S2 irregular, no gallop Abdomen: soft, no mass Ext: no edema Clean surgical wound Last Impressions Chest X-Ray 06/29/17 0000 Signed Impressions: Service Date/Time: Thursday, June 29, 2017 09:30 - CONCLUSION: Pacer as described above. Mono Amaya MD FACR Current Medications Medications (Trade) Dose Ordered Sig/Jean Route Start Time Stop Time Status Last Admin Amiodarone HCl 450 mg/Dextrose 250 ml @ 33 mls/hr Q7H35M IV 06/27/17 11:38 06/29/17 02:15 (NS Flush) 2 ml UNSCH PRN IV FLUSH 06/27/17 13:30 (NS Flush) 2 ml BID IV FLUSH 06/27/17 21:00 06/30/17 08:13 (Tylenol) 650 mg Q4H PRN PO 06/27/17 13:30 (Narcan Inj) 0.4 mg UNSCH PRN IV PUSH 06/27/17 13:30 (Patito-Colace) 1 tab BID PO 06/27/17 21:00 06/30/17 08:13 (Milk Of Magnesia Liq) 30 ml Q12H PRN PO 06/27/17 13:30 (Senokot) 17.2 mg Q12H PRN PO 06/27/17 13:30 (Dulcolax Supp) 10 mg DAILY PRN RECTAL 06/27/17 13:30 (Lactulose Liq) 30 ml DAILY PRN PO 06/27/17 13:30 (Aspirin Chew) 81 mg DAILY CHEW 06/28/17 09:00 Future Hold (Lipitor) 40 mg HS PO 06/27/17 21:00 06/29/17 21:32 (Ferrous Sulfate) 325 mg BIDPC PO 06/27/17 18:00 06/30/17 08:11 (Folate) 1 mg DAILY PO 06/28/17 09:00 06/30/17 08:13 (Toprol Xl) 50 mg DAILY PO 06/28/17 09:00 06/30/17 08:11 (Demadex) 20 mg BID PO 06/27/17 21:00 Future Hold (Prinivil) 2.5 mg DAILY PO 06/28/17 09:00 Future Hold (Protonix) 20 mg DAILY PO 06/28/17 09:00 06/30/17 08:12 (Coumadin) 5 mg DAILY@1600 PO 06/29/17 16:00 Future hold (Demadex) 20 mg BID@09,18 PO 06/28/17 09:00 06/30/17 08:11 (Prinivil) 2.5 mg DAILY PO 06/28/17 09:00 06/30/17 08:12 (Pill Splitter) 1 ea UNSCH PRN OTHER 06/28/17 09:00 (Restoril) 15 mg HS PRN PO 06/29/17 09:00 06/30/17 01:40 (Zofran Inj) 4 mg Q4H PRN IV PUSH 06/29/17 09:00 (Tylenol-Codeine #3) 1 tab Q4H PRN PO 06/29/17 09:00 (Tylenol-Codeine #3) 2 tab Q4H PRN PO 06/29/17 09:00 (Cordarone) 400 mg BID PO 06/29/17 09:00 07/05/17 21:01 06/30/17 08:11 (Cordarone) 200 mg DAILY PO 07/06/17 09:00 Assessment and Plan Problem List: (1) ICD (implantable cardioverter-defibrillator) in place ICD Codes: Z95.810 - Presence of automatic (implantable) cardiac defibrillator Plan: SICD implanted yesterday Clean surgical wound Device well functioning Can be DH when ok with the managing team (2) HTN (hypertension) ICD Codes: I10 - Essential (primary) hypertension Plan: SBP 111 (3) NSVT (nonsustained ventricular tachycardia) ICD Codes: I47.2 - Ventricular tachycardia Status: Acute Plan: Some episodes of NSVT observed Doing better Problem Qualifiers (1) HTN (hypertension): Qualified Codes: I10 - Essential (primary) hypertension Jessie Santiago MD Jun 30, 2017 11:44
[2017-06-30] MEDS ORDERED: POTA-163 PO (11:48)
[2017-06-30] MEDS ORDERED: POTASSIUM CHLORIDE 20 MEQ CONTROLLED RELEASE TAB PO SCH (12:00)
--- NOTE | 2017-07-04 10:29 | HHI.DS ---
Discharge Summary Admission Date Jun 27, 2017 at 12:57 Discharge Date: Jun 30, 2017 Admitting Diagnosis tachycardia, multifocal PVCs, nonsustained VT Brief History 66-year-old male overdue for SICD placement, presents with symptoms of non- sustained tachycardia. CBC/BMP: 06/30/17 0535 Imaging Last Impressions Chest X-Ray 06/29/17 0000 Signed Impressions: Service Date/Time: Thursday, June 29, 2017 09:30 - CONCLUSION: Pacer as described above. Mono Amaya MD FACR PE at Discharge GENERAL: This is a well-nourished, well-developed patient, in no apparent distress. SKIN: No rashes, ecchymoses or lesions. Cool and dry. HEAD: Atraumatic. Normocephalic. NECK: Trachea midline. No JVD or lymphadenopathy. Supple, nontender CARDIOVASCULAR: Regular rhythm with systolic murmur best heard at LSB. Loud end -systolic click. RESPIRATORY: Clear to auscultation. Breath sounds equal bilaterally. No wheezes , rales, or rhonchi. GASTROINTESTINAL: Abdomen soft and protuberant, non-tender, nondistended. MUSCULOSKELETAL: Extremities without clubbing, cyanosis, or edema. NEUROLOGICAL: Awake and alert. Cranial nerves II through XII grossly intact. Motor and sensory grossly within normal limits. Hospital Course 66-year-old male presenting to the emergency department with palpitations and shortness of breath. 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 Upon arrival to the emergency department his EKG showed polymorphic PVCs with tachycardia and he was loaded with amiodarone. SICD implanted by , who confimed it is functioning well and cleared him for d/c. Non-sustained tachycardia improved. Pt Condition on Discharge: Good Discharge Disposition: Discharge Home Discharge Instructions DIET: Follow Instructions for: Heart Healthy Diet Speech Therapy-Diet Recommenda: Regular Activities you can perform: Regular-No Restrictions Follow up Referrals: PCP Follow-up - 1 Week New Medications: Allopurinol (Allopurinol) 100 Mg Tab 100 MG PO DAILY for Gout, #30 TAB 0 Refills Potassium Chloride ER (Potassium Chloride ER) 20 Meq Tab 20 MEQ PO BID for Electrolyte Replacement, #60 TAB 0 Refills Amiodarone (Amiodarone) 200 Mg Tab 400 MG PO BID for 6 Days, #24 TAB Take 400mg BID; last day on 07/05 Amiodarone (Amiodarone) 200 Mg Tab 200 MG PO DAILY for 30 Days, #30 TAB Take 200mg daily starting on 07/06 Warfarin (Coumadin) 5 Mg Tab 5 MG PO DAILY@1600 for 30 Days, #30 TAB Continued Medications: Aspirin (Aspirin) 81 Mg Chew 81 MG CHEW DAILY, TAB 0 Refills Atorvastatin (Atorvastatin) 40 Mg Tab 40 MG PO HS for Cholesterol Management, #30 TAB 0 Refills Ferrous Sulfate (Ferrous Sulfate) 325 Mg (65 Mg Iron) Tablet 325 MG PO BIDPC for Nutritional Supplement, #60 TAB 0 Refills Folic Acid (Folic Acid) 0.8 Mg Tab 800 MCG PO DAILY for Nutritional Supplement, TAB 0 Refills Lisinopril (Lisinopril) 2.5 Mg Tab 2.5 MG PO DAILY, #30 TAB 0 Refills Metoprolol Succinate ER 24 HR (Metoprolol Succinate ER 24 HR) 50 Mg Tab 50 MG PO DAILY, #30 TAB 0 Refills Omeprazole (Omeprazole) 20 Mg Tab 20 MG PO DAILY, #30 TAB 0 Refills Torsemide (Torsemide) 20 Mg Tab 20 MG PO BID, #60 TAB 2 Refills Warfarin (Coumadin) 5 Mg Tab 5 MG PO DAILY for Blood Clot Prevention, #30 TAB 0 Refills Micaela Xiao MD R2 Jul 04, 2017 10:29
[2017-07-06] MEDS ORDERED: AMIODARONE 200 MG TAB PO SCH (09:00)
--- NOTE | 2017-07-11 11:53 | MP ---
cc: DAVID PAIZ M.D. DATE OF SURGERY 06/29/2017 OPERATION Subcutaneous defibrillator insertion. INDICATION Mr. Monzon is a 66-year-old gentleman with history of congestive heart failure, nonischemic cardiomyopathy, previous aortic valve replacement. He had a defibrillator that was removed in 2011. Ejection fraction was improved in the 40%. No defibrillator was implanted. In the past year ejection fraction dropped in the 20-30%. He was admitted in the hospital due to heart failure, an episode of nonsustained ventricular tachycardia. Decision for defibrillator insertion for sudden primary prevention was taken. The risks, the nature and the benefit of the procedure are clearly stated to him. The risks include pneumothorax, cardiac perforation, stroke and even . He understood and agreed to proceed. The gentleman going to have a subcutaneous defibrillator. PROCEDURE DETAILS After written informed consent was obtained, the patient was brought to the EP lab where he was prepped and draped in the usual sterile fashion. Conscious sedation was initiated and maintained throughout the procedure by anesthesiologist. Once sedation verified, the left axillary area was anesthetized with 2% Xylocaine. The left parasternal area was anesthetized with 2% Xylocaine. Using an #11 scalpel, a 5-6 cm incision was made in the mid axillary area. The incision was taken down to the deep fascial layer using Bovie cautery and blunt dissection. Subsequently a subxiphoid 1-cm incision was made. Then using a 10-Andor[place] sheath and introducer, the sheath was advanced from the subxiphoid area to the pocket and the mid axillary area. Subsequently the lead was advanced and the sheath was removed. The pole of the lead was sutured in the subxiphoid area. Then, the rest of the lead was all the way close to the union of the clavicle and the sternum. Then the pocket was copiously irrigated with solution. The lead was connected to the generator and placed into the pocket. I did proceed with wound closure. The deep fascial layer was approximated with 2-0 Vicryl suture in a continuous fashion. The subcutaneously layer was approximated with #2-0 Vicryl suture in a continuous fashion. The subcuticular layer was approximated with 2-0 Vicryl suture in a continuous fashion. Dermabond adhesive was applied to the wound followed by sterile pressure dressing. Previous to that, the subxiphoid area was closed using #2 Vicryl suture also. At that point sensing and measurement were performed. They were adequate. No noise seen at the lead. Because the patient cannot be fully sedated because of blood pressure, I decided not to proceed with device testing. Procedure was complete. No incident to report. Blood loss minimal. IMPRESSION implanted. Subcutaneous defibrillator is a Red Zebra model number A219, serial number [id number]. As mentioned before there was no noise on sensing. Setting the device, the device is set for one zone for ventricular tachycardia above 170 beats per minute. therapy with maximum inner delivered. That was 80 joules. CONCLUSION Successful subcutaneous defibrillator insertion, COMMENT AND RECOMMENDATIONS The patient going to be transferred to the recovery room. Will be observed, when stable can be discharged home. MD WILLOW Manuel/MARCEL /3:04 PM /11:37 AM
== END 2017-06-30 16:05 | disposition home or self-care (01) | DRG 245 ==
LOC: NEPC 10:52 → NEDA 12:57 → N03A 20:03 → HCIS 06-29 12:57
PROVIDERS: ADMIT Family Medicine; ATTEND Family Medicine
PROC: 0JH60PZ Insertion of Cardiac Rhythm Related Device into Chest Subcutaneous Tissue and Fascia, Open Approach (ICD-10-PCS; 2017-06-29)
PROC: 0JH608Z Insertion of Defibrillator Generator into Chest Subcutaneous Tissue and Fascia, Open Approach (ICD-10-PCS; principal; 2017-06-29 08:00)
DX: I47.2 Ventricular tachycardia (principal); N17.9 Acute kidney failure, unspecified; I42.9 Cardiomyopathy, unspecified; I11.0 Hypertensive heart disease with heart failure; I50.9 Heart failure, unspecified; Z95.2 Presence of prosthetic heart valve; M10.9 Gout, unspecified; I49.3 Ventricular premature depolarization; Z79.01 Long term (current) use of anticoagulants; I48.91 Unspecified atrial fibrillation; Z72.0 Tobacco use; E78.00 Pure hypercholesterolemia, unspecified; K21.9 Gastro-esophageal reflux disease without esophagitis; E87.6 Hypokalemia; R73.09 Other abnormal glucose
CPT/HCPCS: 33249; 71010; 80048; 82550; 82552; 83036; 83735; 84443; 84484; 84550; 85007; 85025; 85027; 85610; 85730; 93005; 96365; 96375; C1722; C1777; J0282; J0690; J2250; J2370; J3010; J3370; J7030; J7040; J7060

== ENCOUNTER 2017-11-05 16:51 | Inpatient (IN) | payer MEDICARE, BC ==
[~2017-11-05] VITALS: Ht 172.7 cm; Wt 82.4 kg
[2017-11-05] VITALS (7 sets, daily range): BP systolic 114–137; BP diastolic 67–73; PULSE 79–95; RESP 14–20; TEMP 99.1–99.7; O2SAT 95–98
[~2017-11-05 16:51] MED LIST: ALLO100T PO; AMIO200T PO; ASPI-516 CHEW; ATOR40TA16 PO; COUM5TAB PO; FERR325T18 PO; FOLI800T PO; LISI2.5T3 PO; METO1TAB9 PO; OMEP20TA93 PO; POTA-163 PO; TORS20TA PO
[2017-11-05] MEDS ORDERED: WARF-18 PO (17:05)
[2017-11-05] MEDS ORDERED: WARF-23 PO (17:05)
[2017-11-05] MEDS ORDERED: AMIODARONE INJ 150 MG in DEXTROSE 5% IN WATER 100ML INJ 97 ML IV ONE ×2 (17:12)
[2017-11-05] MEDS ORDERED: AMIODARONE INJ 450 MG in SODIUM CHLOR 0.9% (EXCEL) INJ 250 ML IV SCH (17:27)
[2017-11-05] MEDS ORDERED: AMIODARONE INJ 450 MG in DEXTROSE 5% IN WATE(EXCEL) INJ 241 ML IV SCH ×2 (17:27)
--- NOTE | 2017-11-05 17:27 | PD ---
HPI Chief Complaint: Vtach Time Seen by Provider: 17:02 Travel History International Travel<30 days: No Contact w/Intl Traveler<30days: No Traveled to known affect area: No History of Present Illness HPI 67yo M with PMh of afib s/p AICD, aortic valve replacement, matched mitral valve ring on coumadin presents to the ED with c/o AICD firing x4 times since 1pm today. As I was evaluating pt, he was having a lot of PVCs and then had Vtach which caused his AICD to fire. Pt said he was sob yesterday but not anymore. Denies any fever, cough, chest pain, vomiting, abdominal pain, focal weakness or numbness. Pt feels a little nauseous after the firing. [employer] is Dr. Brush. Pt said he is compliant with his amiodarone 200mg PO which he took last night. PFSH Past Medical History Hx Anticoagulant Therapy: Yes Arthritis: Yes Asthma: No Atrial Fibrillation: Yes Autoimmune Disease: No Heart Rhythm Problems: Yes Cancer: No Cardiac Catheterization: Yes Cardiomyopathy: Yes Cardiovascular Problems: Yes High Cholesterol: Yes (takes a statin) Chest Pain: Yes (cardiomyopathy) Congestive Heart Failure: Yes COPD: No Cerebrovascular Accident: No Diabetes: No Endocrine: No GERD: No Genitourinary: Yes Hiatal Hernia: No Kidney Stones: No Musculoskeletal: No Neurologic: No Psychiatric: No Reproductive: No Respiratory: No Migraines: No Seizures: No Sickle Cell Disease: No Sleep Apnea: No Thyroid Disease: No Ulcer: No Past Surgical History Abdominal Surgery: No AICD: Yes (removed r/t infection) Cardiac Surgery: Yes Ear Surgery: No Endocrine Surgery: No Eye Surgery: No Genitourinary Surgery: No Oral Surgery: Yes Valve Replacement: Yes Social History Alcohol Use: Yes (social) Tobacco Use: No Substance Use: No Allergies-Medications (Allergen,Severity, Reaction): Coded Allergies: No Known Allergies (Verified , 11/05/17) Reported Meds & Prescriptions Reported Meds & Active Scripts Active Reported Warfarin 5 Mg Tab 5 Mg PO SUTUTHSA Warfarin 2.5 Mg Tab 2.5 Mg PO MOWEFR Lisinopril 2.5 Mg Tab 2.5 Mg PO DAILY Folic Acid 0.8 Mg Tab 800 Mcg PO DAILY Ferrous Sulfate 325 Mg (65 Mg Iron) Tablet 325 Mg PO BIDPC Atorvastatin (Atorvastatin Calcium) 40 Mg Tab 40 Mg PO HS Aspirin 81 Mg Chew 81 Mg CHEW DAILY Review of Systems Except as stated in HPI: all other systems reviewed are Neg Physical Exam Narrative GENERAL: 67yo M in mild distress. SKIN: Focused skin assessment warm/dry. HEAD: Atraumatic. Normocephalic. EYES: Pupils equal and round. No scleral icterus. No injection or drainage. ENT: No nasal bleeding or discharge. Mucous membranes pink and moist. NECK: Trachea midline. No JVD. CARDIOVASCULAR: Irregular. Multiple PVCs. RESPIRATORY: No accessory muscle use. Clear to auscultation. Breath sounds equal bilaterally. GASTROINTESTINAL: Abdomen soft, non-tender, nondistended. MUSCULOSKELETAL: No obvious deformities. No clubbing. No cyanosis. No edema. NEUROLOGICAL: Awake and alert. No obvious cranial nerve deficits. Motor grossly within normal limits. Normal speech. PSYCHIATRIC: Appropriate mood and affect; insight and judgment normal. Data Data Last Documented VS Vital Signs Date Time Temp Pulse Resp B/P (MAP) Pulse Ox O2 Delivery O2 Flow Rate FiO2 11/05/17 18:46 95 14 137/67 (90) 98 Room Air 11/05/17 16:53 99.1 Orders Orders Dextrose 5% In Wate... W/Amiodarone Inj (11/05/17 17:12) Dextrose 5% In Wate... W/Amiodarone Inj (11/05/17 17:27) Complete Blood Count With Diff (11/05/17 17:14) Basic Metabolic Panel (Bmp) (11/05/17 17:14) Troponin I (11/05/17 17:14) Prothrombin Time / Inr (Pt) (11/05/17 17:14) Act Partial Throm Time (Ptt) (11/05/17 17:14) Magnesium (Mg) (11/05/17 17:14) Chest, Single Ap (11/05/17 ) Sodium Chlor 0.9% (... W/Amiodarone Inj (11/05/17 17:27) Consult Cardiology (11/05/17 ) (Hub Use Only)Inp Phy Cons/Ref (11/05/17 ) Potassium Chloride (Kcl) (11/05/17 18:30) Potassium Chlor 20 Meq Premix (Kcl 20 Me (11/05/17 18:30) ^ Medication Admin Instruction (11/05/17 18:54) Notify Dr: Other (11/05/17 18:54) Potassium Chlor 40 Meq Premix (Kcl 40 Me (11/05/17 19:00) Potassium Chlor 20 Meq Premix (Kcl 20 Me (11/05/17 19:00) Potassium Chloride Eff (K-Lyte Cl Eff) (11/05/17 19:00) Potassium Chlor 40 Meq Premix (Kcl 40 Me (11/05/17 19:00) Potassium Chlor 20 Meq Premix (Kcl 20 Me (11/05/17 19:00) Magnesium Sulfate Inj (Magnesium Sulfate (11/05/17 19:00) Magnesium Oxide (Mag-Ox) (11/05/17 19:00) Magnesium Sulfate Inj (Magnesium Sulfate (11/05/17 19:00) Potassium Phosphate (K-Phos) (11/05/17 19:00) Sodium Phosphate Inj (Sodium Phosphate I (11/05/17 19:00) Potassium Phosphate (K-Phos) (11/05/17 19:00) Potassium Phosphate Inj (Potassium Phosp (11/05/17 19:00) ^ Medication Alert (11/05/17 18:54) ^ Discontinue (11/05/17 18:54) Dextrose 5% In Wate... W/Amiodarone Inj (11/05/17 19:04) Vital Signs (Adult) JAY.Q4H (11/05/17 18:54) Bedside Glucose . DIRECTED (11/05/17 18:55) Blood Glucose Goal (Criteria) (11/05/17 18:55) Hypoglycemia 70 Mg/Dl Or < (11/05/17 18:55) Notify Dr: Other (11/05/17 18:55) Dextrose 50% In [place] (Vial) Inj (D50w (Vi (11/05/17 19:00) Glucagon Inj (Glucagon Inj) (11/05/17 19:00) Insulin Aspart Supplemtl Scale (Novolog (11/05/17 19:00) Admit Order (Ed Use Only) (11/05/17 18:57) Hepatic Functional Panel (11/05/17 17:18) Phosphorus (Po4) (11/05/17 17:18) Thyroid Stimulating Hormone (11/05/17 17:18) Labs Laboratory Tests Test 11/05/17 17:18 White Blood Count 8.7 TH/MM3 Red Blood Count 3.89 MIL/MM3 Hemoglobin 12.5 GM/DL Hematocrit 36.4 % Mean Corpuscular Volume 93.7 FL Mean Corpuscular Hemoglobin 32.2 PG Mean Corpuscular Hemoglobin Concent 34.4 % Red Cell Distribution Width 15.4 % Platelet Count 105 TH/MM3 Mean Platelet Volume 10.1 FL CBC Comment AUTO DIFF Differential Total Cells Counted 100 Neutrophils % (Manual) 52 % Lymphocytes % 8 % Monocytes % 39 % Eosinophils % 1 % Neutrophils # (Manual) 4.5 TH/MM3 Differential Comment FINAL DIFF MANUAL Platelet Estimate LOW Platelet Morphology Comment NORMAL Red Cell Morphology Comment NORMAL Prothrombin Time 27.5 SEC Prothromb Time International Ratio 2.7 RATIO Activated Partial Thromboplast Time 40.5 SEC Blood Urea Nitrogen 56 MG/DL Creatinine 2.21 MG/DL Random Glucose 175 MG/DL Total Protein 8.7 GM/DL Albumin 4.4 GM/DL Calcium Level 8.7 MG/DL Phosphorus Level 2.7 MG/DL Magnesium Level 2.2 MG/DL Alkaline Phosphatase 99 U/L Aspartate Amino Transf (AST/SGOT) 31 U/L Alanine Aminotransferase (ALT/SGPT) 29 U/L Total Bilirubin 1.7 MG/DL Direct Bilirubin 0.5 MG/DL Sodium Level 139 MEQ/L Potassium Level 2.7 MEQ/L Chloride Level 98 MEQ/L Carbon Dioxide Level 31.0 MEQ/L Anion Gap 10 MEQ/L Estimat Glomerular Filtration Rate 30 ML/MIN Hemoglobin A1c 5.5 % Indirect Bilirubin 1.2 MG/DL Troponin I 0.05 NG/ML Thyroid Stimulating Hormone 3rd Gen 2.730 uIU/ML [facility] Medical Decision Making Medical Screen Exam Complete: Yes Emergency Medical Condition: Yes Interpretation(s) EKG: Afib at 108bpm. Multiple PVCs. Differential Diagnosis Vtach vs. electrolyte abnormality vs. infection Narrative Course 67yo M s/p AICD firing today. Labs reviewed, no leukocytosis. Hypokalemic at 2.7. Pt given 60mEq KCl and 20mEq KCl IV. BUN/creatinine elevated at 56/2.21. Troponin 0.05. CXR showed slight cardiomegaly. I witnessed the Vtach and pt was subsequently shock by his AICD. Pt given amiodarone 150mg IV bolus over [address] on amiodarone ip. Pt had 2 more shocks from AICD. I discussed with Dr. Brush who agrees with treating hypokalemia and continuing amiodarone drip. Discussed with Dr. Dempsey and accepted to her service. Critical Care Narrative Aggregate critical care time was 50 minutes. Time to perform other separately billable procedures was not included in the critical care time. My time did not include minutes spent treating any other patients simultaneously or on activities that did not directly contribute to the patient's treatment. The services I provided to this patient were to treat and/or prevent clinically significant deterioration that could result in: cardiovascular collapse or . I provided critical care services requiring my management, as noted below: Chart data review, documentation time, medication orders and management, vital sign assessments/reviewing monitor data, ordering and reviewing lab tests, ordering and interpreting/reviewing x-rays and diagnostic studies, care of the patient and discussion of the patient with the admitting physicians. Diagnosis Primary Impression: V-tach Additional Impression: Hypokalemia Admitting Information Admitting Physician Requests: Admit Scripts Torsemide (Torsemide) 5 Mg Tab 10 MG PO BID@ for HEART for 30 Days, TAB Prov: Michael Garcia MD 11/06/17 Potassium Chloride ER (Potassium Chloride ER) 20 Meq Tab 20 MEQ PO TID for Electrolyte Replacement for 30 Days, #60 TAB 0 Refills Prov: Michael Garcia MD 11/06/17 Amiodarone (Amiodarone) 200 Mg Tab 200 MG PO BID for HEART for 30 Days, #60 TAB Take 200mg daily starting on 07/06 Prov: Michael Garcia MD 11/06/17 Metoprolol Succinate ER 24 HR (Metoprolol Succinate ER 24 HR) 50 Mg Tab 50 MG PO BID for Heart for 30 Days, #60 TAB 0 Refills Extended release tabs. one tab by mouth twice daily Prov: Michael Garcia MD 11/06/17 Condition: Ana HernandezuLena DO Nov 05, 2017 17:27
[2017-11-05] MEDS ORDERED: AMIODARONE INJ 450 MG in SODIUM CHLOR 0.9% (EXCEL) INJ 250 ML IV PRN ×2 (17:30→19:45)
[2017-11-05] MEDS ORDERED: AMIODARONE 150 MG/D5W 97 ML BOLUS 10 MINUTES IV ONE ×2 (17:30)
--- NOTE | 2017-11-05 17:51 | RADRPT ---
EXAM DATE/TIME: 11/05/2017 17:28 [place] COMPARISON: CHEST SINGLE AP, June 29, 2017, 9:30. INDICATIONS : Palpitations. Patients defibrillator has been going off today. MEDICAL HISTORY : Congestive heart failure. SURGICAL HISTORY : Aortic valve replacement. CABG. Defibrillator. ENCOUNTER: Initial ACUITY: 1 day PAIN SCORE: 0/10 LOCATION: Bilateral chest FINDINGS: There is evidence for prior median sternotomy. cardiomegaly is present with cardiac defibrillator in place. Lungs are clear. CONCLUSION: Slight cardiomegaly. Max Ferreira MD on November 05, 2017 at 17:48 Board Certified Radiologist. This report was verified electronically.
[2017-11-05 17:59] LABS: HEMATOCRIT 36.4 % (39.0-51.0); HEMOGLOBIN 12.5 GM/DL (13.0-17.0); MEAN CELL VOLUME 93.7 FL (80.0-100.0); MEAN CORPUSCULAR HEMOGLOBIN 32.2 PG (27.0-34.0); MEAN CORPUSCULAR HGB CONC 34.4 % (32.0-36.0); MEAN PLATELET VOLUME 10.1 FL (7.0-11.0); PLATELET COUNT 105 TH/MM3 (150-450); RED BLOOD COUNT 3.89 MIL/MM3 (4.50-5.90); RED CELL DISTRIBUTION WIDTH 15.4 % (11.6-17.2); WHITE BLOOD COUNT 8.7 TH/MM3 (4.0-11.0)
[2017-11-05 18:11] LABS: INTERNATIONAL NORMALIZED RATIO 2.7 RATIO; PROTHROMBIN TIME - PATIENT 27.5 SEC (9.8-11.6)
[2017-11-05 18:24] LABS: CALCIUM 8.7 MG/DL (8.5-10.1); CREATININE 2.21 MG/DL (0.60-1.30); MAGNESIUM 2.2 MG/DL (1.5-2.5)
[2017-11-05] MEDS ORDERED: POTASSIUM CHLOR 20 MEQ PREMIX 100 ML IV ONE (18:30)
[2017-11-05] MEDS ORDERED: POTASSIUM CHLORIDE 20 MEQ CONTROLLED RELEASE TAB PO ONE (18:30)
[2017-11-05 18:39] LABS: TROPONIN I 0.05 NG/ML (0.02-0.05)
[2017-11-05 18:55] LABS: LYMPHOCYTES 8 % (9-44); MONOCYTES 39 % (0-8); NEUTROPHIL # MANUAL DIFF 4.5 TH/MM3 (1.8-7.7); POLYS (SEG NEUTROPHILS) 52 % (16-70)
[2017-11-05] MEDS ORDERED: POTASSIUM CHLOR 20 MEQ PREMIX 100 ML IV PRN ×2 (19:00)
[2017-11-05] MEDS ORDERED: POTASSIUM PHOSPHATE MONOBASIC 500 MG TAB PO PRN (19:00)
[2017-11-05] MEDS ORDERED: CHLORHEXIDINE GLUCONATE 2 % 1 PACK (2 CLOTHS) TOP PRN (19:00)
[2017-11-05] MEDS ORDERED: SODIUM CHLORIDE 0.9% FLUSH 10 ML FLUSH IV FLUSH PRN (19:00)
[2017-11-05] MEDS ORDERED: DEXTROSE 50% IN WATER 50 ML VIAL(D50) IV PUSH PRN (19:00)
[2017-11-05] MEDS ORDERED: POTASSIUM CHLOR 40 MEQ PREMIX 100 ML IV PRN ×2 (19:00)
[2017-11-05] MEDS ORDERED: POTASSIUM CHLORIDE 25 MEQ EFFERVESCENT TAB PO PRN (19:00)
[2017-11-05] MEDS ORDERED: POTASSIUM PHOSPHATE MONOBASIC 500 MG TAB PO/TUBE PRN (19:00)
[2017-11-05] MEDS ORDERED: MISCELLANEOUS NURSING INFORMATION XX SCH (19:00)
[2017-11-05] MEDS ORDERED: MAGNESIUM OXIDE 400 MG TAB PO PRN (19:00)
[2017-11-05] MEDS ORDERED: MAGNESIUM SULFATE INJ 2 GM in SODIUM CHLORIDE 0.9% INJ 96 ML IV PRN (19:00)
[2017-11-05] MEDS ORDERED: LACTULOSE SYRUP 20 GM/30 ML CUP PO PRN (19:00)
[2017-11-05] MEDS ORDERED: RESP: ALBUTEROL 2.5 MG/3 ML NEB (PRN) INH (19:00)
[2017-11-05] MEDS ORDERED: ONDANSETRON HCL 4 MG/2 ML VIAL IV PUSH PRN (19:00)
[2017-11-05] MEDS ORDERED: MAGNESIUM SULFATE INJ 4 GM in SODIUM CHLORIDE 0.9% INJ 92 ML IV PRN (19:00)
[2017-11-05] MEDS ORDERED: MAGNESIUM HYDROXIDE SUSP 30 ML CUP PO PRN (19:00)
[2017-11-05] MEDS ORDERED: POTASSIUM PHOSPHATE INJ 30 MMOL in SODIUM CHLOR 0.9% 250 ML INJ 250 ML IV PRN (19:00)
[2017-11-05] MEDS ORDERED: ACETAMINOPHEN 325 MG TAB PO PRN ×2 (19:00→21:15)
[2017-11-05] MEDS ORDERED: BISACODYL 10 MG SUPP RECTAL PRN (19:00)
[2017-11-05] MEDS ORDERED: GLUCAGON 1 MG/ML VIAL OTHER PRN (19:00)
[2017-11-05] MEDS ORDERED: SODIUM PHOSPHATE INJ 30 MMOL in SODIUM CHLOR 0.9% 250 ML INJ 240 ML IV PRN (19:00)
[2017-11-05] MEDS ORDERED: SENNOSIDES 8.6 MG TAB PO PRN (19:00)
[2017-11-05] MEDS ORDERED: AMIODARONE INJ 450 MG in DEXTROSE 5% IN WATE(EXCEL) INJ 241 ML IV PRN ×2 (19:04)
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
[2017-11-05] MEDS ORDERED: ATORVASTATIN 40 MG TAB PO SCH (21:00)
[2017-11-05] MEDS ORDERED: WARFARIN SOD 5 MG TAB PO SCH (21:00)
[2017-11-05] MEDS ORDERED: ACETAMINOPHEN/HYDROcodone 325 MG/5 MG TAB PO PRN ×2 (21:15)
[2017-11-05] MEDS ORDERED: MORPHINE SULFATE 2 MG/ML INJ IV PUSH PRN (21:15)
[2017-11-05] MEDS ORDERED: PILL SPLITTER OTHER PRN (21:15)
[2017-11-05 21:33] LABS: ALBUMIN 4.4 GM/DL (3.4-5.0); PHOSPHORUS 2.7 MG/DL (2.5-4.9)
[2017-11-05 21:44] LABS: DIRECT BILIRUBIN ADULT 0.5 MG/DL (0.0-0.2); INDIRECT BILIRUBIN 1.2 MG/DL (0.0-0.8); TOTAL BILIRUBIN ADULT 1.7 MG/DL (0.2-1.0); TOTAL PROTEIN 8.7 GM/DL (6.4-8.2)
[2017-11-05] MEDS: INSULIN ASPART SUPPLEMENTAL SCALE SQ SCH (21:50)
[2017-11-05] MEDS: DOCUSATE SODIUM 50 MG/SENNA 8.6 MG TAB PO SCH (21:51)
[2017-11-05] MEDS: SODIUM CHLORIDE 0.9% FLUSH 10 ML FLUSH IV FLUSH SCH (21:51)
[2017-11-05] MEDS: POTASSIUM CHLORIDE 20 MEQ CONTROLLED RELEASE TAB PO SCH (21:51)
[2017-11-06] VITALS (10 sets, daily range): BP systolic 107–132; BP diastolic 56–84; PULSE 79–95; RESP 18–27; TEMP 97.5–99.1; O2SAT 94–98
[2017-11-06] MEDS: INSULIN ASPART SUPPLEMENTAL SCALE SQ SCH ×3 (01:23→12:41)
[2017-11-06 01:24] LABS: TROPONIN I 0.08 NG/ML (0.02-0.05)
[2017-11-06] MEDS ORDERED: TEMAZEPAM 15 MG CAP PO ONE (02:00)
[2017-11-06] MEDS ORDERED: CHLORHEXIDINE GLUCONATE 2 % 1 PACK (2 CLOTHS) TOP SCH (04:00)
[2017-11-06 04:07] LABS: HEMATOCRIT 31.9 % (39.0-51.0); MEAN CELL VOLUME 92.6 FL (80.0-100.0); MEAN CORPUSCULAR HEMOGLOBIN 31.9 PG (27.0-34.0); MEAN CORPUSCULAR HGB CONC 34.4 % (32.0-36.0); MEAN PLATELET VOLUME 9.3 FL (7.0-11.0); PLATELET COUNT 86 TH/MM3 (150-450); RED BLOOD COUNT 3.44 MIL/MM3 (4.50-5.90); RED CELL DISTRIBUTION WIDTH 14.8 % (11.6-17.2); WHITE BLOOD COUNT 7.2 TH/MM3 (4.0-11.0)
[2017-11-06 04:21] LABS: ALBUMIN 3.9 GM/DL (3.4-5.0); AST (GOT) 22 U/L (15-37); BICARBONATE 29.7 MEQ/L (21.0-32.0); BLOOD UREA NITROGEN 50 MG/DL (7-18); CALCIUM 8.8 MG/DL (8.5-10.1); CHLORIDE 104 MEQ/L (98-107); CREATININE 1.95 MG/DL (0.60-1.30); GLOMERULAR FILTRATION RATE 34 ML/MIN (>89); GLUCOSE,RANDOM 158 MG/DL (74-106); MAGNESIUM 2.4 MG/DL (1.5-2.5); SODIUM (NA) 141 MEQ/L (136-145)
[2017-11-06 04:22] LABS: ALT (GPT) 23 U/L (12-78)
[2017-11-06 04:25] LABS: ALKALINE PHOSPHATASE 87 U/L (45-117); TOTAL BILIRUBIN ADULT 1.6 MG/DL (0.2-1.0); TOTAL PROTEIN 7.5 GM/DL (6.4-8.2); TROPONIN I 0.07 NG/ML (0.02-0.05)
[2017-11-06 04:33] LABS: INTERNATIONAL NORMALIZED RATIO 2.7 RATIO; PROTHROMBIN TIME - PATIENT 27.6 SEC (9.8-11.6)
[2017-11-06 08:44] LABS: BANDS 2 % (0-6); BASOPHILS 2 % (0-2); LYMPHOCYTES 6 % (9-44); MONOCYTES 46 % (0-8); NEUTROPHIL # MANUAL DIFF 3.3 TH/MM3 (1.8-7.7); POLYS (SEG NEUTROPHILS) 44 % (16-70)
[2017-11-06] MEDS: POTASSIUM CHLORIDE 20 MEQ CONTROLLED RELEASE TAB PO SCH (08:55)
--- NOTE | 2017-11-06 08:55 | RADRPT ---
EXAM DATE/TIME: 11/06/2017 08:01 [place] COMPARISON: No previous studies available for comparison. INDICATIONS : Increased lab values. MEDICAL HISTORY : Myocardial infarction. Congestive heart failure. Hypercholesterolemia. Syncope. Cardiomyopathy. Atria l fibrillation. Renal disease. Arthritis. SURGICAL HISTORY : Oral surgery. Valve replacement. ENCOUNTER: Initial ACUITY: 1 day PAIN SCORE: 1/10 LOCATION: Bilateral upper quadrant MEASUREMENTS: LIVER: 17.8 cm length COMMON DUCT: 6 mm RIGHT KIDNEY: 10.7 x 3.5 x 5.8 cm SPLEEN: 11.9 cm length FINDINGS: LIVER: Normal echotexture without focal lesion or ductal dilatation. Hepatopedal flow. COMMON DUCT: No intraluminal mass or stone visualized. GALLBLADDER: Contains no stones, demonstrates no wall thickening or pericholecystic fluid. PANCREAS: Nonvisualized. RIGHT KIDNEY: No hydronephrosis, stone or mass. Simple cyst upper pole measures 10 x 9 x 9 mm. Echogenic foci seen likely vascular calcifications. SPLEEN: No focal lesion. CONCLUSION: 1. Right renal cyst. 2. Nonvisualization of pancreas. 3. Liver appears unremarkable. Matthew Obando MD on November 06, 2017 at 8:50 Board Certified Radiologist. This report was verified electronically.
[2017-11-06] MEDS: DOCUSATE SODIUM 50 MG/SENNA 8.6 MG TAB PO SCH (08:56)
[2017-11-06] MEDS: SODIUM CHLORIDE 0.9% FLUSH 10 ML FLUSH IV FLUSH SCH (08:56)
[2017-11-06] MEDS ORDERED: METOPROLOL SUCCINATE 50 MG EXTENDED RELEASE TAB PO SCH ×2 (09:00→21:00)
[2017-11-06] MEDS ORDERED: TORSEMIDE 5 MG TAB PO SCH (09:00)
[2017-11-06] MEDS ORDERED: FOLIC ACID 1 MG TAB PO SCH (09:00)
[2017-11-06] MEDS ORDERED: FERROUS SULFATE 325 MG (65 MG ELEMENTAL IRON) TAB PO SCH (09:00)
[2017-11-06] MEDS ORDERED: ASPIRIN 81 MG CHEW TAB CHEW SCH (09:00)
[2017-11-06] MEDS ORDERED: LISINOPRIL 5 MG TAB PO SCH (09:00)
[2017-11-06] MEDS ORDERED: PANTOPRAZOLE SOD 40 MG DELAYED RELEASE TAB PO SCH (09:00)
[2017-11-06] MEDS ORDERED: POTASSIUM CHLORIDE 10 MEQ CONTROLLED RELEASE TAB PO SCH ×2 (09:00→21:00)
[2017-11-06] MEDS ORDERED: AMIODARONE 200 MG TAB PO SCH (09:30)
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
[2017-11-06 12:00] LABS: HEMOGLOBIN A1C 5.5 % (4.3-6.0)
[2017-11-06] MEDS ORDERED: AMIO200T PO (12:15)
[2017-11-06] MEDS ORDERED: TORS5TAB2 PO (12:15)
[2017-11-06] MEDS ORDERED: POTA-163 PO (12:15)
[2017-11-06] MEDS ORDERED: METO1TAB9 PO (12:15)
--- NOTE | 2017-11-06 12:18 | EKG ---
Date Performed: 11/05/2017 Time Performed: 17:06:53 PTAGE: 67 years EKG: Underlying rhythm is atrial fibrillation and there is a marked amount of what appears to be ventricular ectopy with runs of ventricular tachycardia of 8-9 beats predominating the rhythm strip. Overall, rate of this is around 140-150. Cannot completely exclude that this is aberrent conduction, but this appears to be ventricular. Intraventricular conduction disturbance Left axis deviation Nons pecific ST-T change There is so much ventricular ectopy that I cannot fully read the 12-lead EKG. Com pared to PREVIOUS TRACING , patient remains in atrial fibrillation. The degree of ventricular ecto py has increased significantly. Clinical correlation and follow-up tracing strongly recommended. PREV IOUS TRACIN06/30/2017 04.16.50 DOCTOR: Gume Cornelius Interpretating Date/Time 11/06/2017 12:16:55
--- NOTE | 2017-11-06 12:20 | EKG ---
Date Performed: 11/06/2017 Time Performed: 06:49:16 PTAGE: 67 years EKG: Atrial fibrillation with PVC(s) or aberrant ventricular conduction Indeterminate axis IV co nduction defect Poor R wave progression - cannot rule out septal infarct Lateral T wave changes are n onspecific Abnormal ECG Compared to PREVIOUS TRACING , no significant change. PREVIOUS TRACIN11/06/2017 01.03.38 DOCTOR: Gume Cornelius Interpretating Date/Time 11/06/2017 12:18:55
--- NOTE | 2017-11-06 12:20 | EKG ---
Date Performed: 11/06/2017 Time Performed: 01:03:38 PTAGE: 67 years EKG: Atrial fibrillation with PVC(s) IV conduction defect Poor R wave progression - cannot rule out anteroseptal infarct Inferior/lateral ST-T changes are nonspecific Abnormal ECG Compared to PREVIOUS TRACING , the amount of ventricular ectopy has decreased significantly. Underlyi ng rhythm is now atrial fibrillation that can be seen in all 12 leads. Clinical correlation and follo w up tracings recommended based on the first EKG. PREVIOUS TRACIN11/05/2017 17.06.53 DOCTOR: Gume Cornelius Interpretating Date/Time 11/06/2017 12:18:10
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
[2017-11-06] MEDS ORDERED: POTASSIUM CHLORIDE 10 MEQ CONTROLLED RELEASE TAB PO ONE (13:00)
[2017-11-07] MEDS ORDERED: WARFARIN SOD 2.5 MG TAB PO SCH (21:00)
== END 2017-11-06 13:25 | disposition home or self-care (01) | DRG 309 ==
LOC: NEPE 16:51 → NEDA 18:59 → HIME 20:20
PROVIDERS: ADMIT Internal Medicine; ATTEND Internal Medicine
DX: I47.2 Ventricular tachycardia (principal); I42.9 Cardiomyopathy, unspecified; D69.6 Thrombocytopenia, unspecified; I50.22 Chronic systolic (congestive) heart failure; I13.0 Hypertensive heart and chronic kidney disease with heart failure and stage 1 through stage 4 chronic kidney disease, or unspecified chronic kidney disease; R17 Unspecified jaundice; N18.3 Chronic kidney disease, stage 3 (moderate); E87.6 Hypokalemia; I48.91 Unspecified atrial fibrillation; E80.7 Disorder of bilirubin metabolism, unspecified; I49.3 Ventricular premature depolarization; E78.00 Pure hypercholesterolemia, unspecified; R73.9 Hyperglycemia, unspecified; M10.9 Gout, unspecified; E78.5 Hyperlipidemia, unspecified; Z79.01 Long term (current) use of anticoagulants; M19.90 Unspecified osteoarthritis, unspecified site; Z95.2 Presence of prosthetic heart valve; Z95.810 Presence of automatic (implantable) cardiac defibrillator
CPT/HCPCS: 71045; 76705; 80048; 80053; 80076; 83036; 83735; 84100; 84132; 84443; 84484; 85007; 85027; 85610; 85730; 87641; 93005; 96365; 96368; 96376; J0282; J1815; J3480; J7050

== ENCOUNTER 2017-11-26 19:05 | Emergency (ER) | payer BC, MEDICARE ==
[~2017-11-26] VITALS: Ht 172.7 cm; Wt 80.0 kg
[~2017-11-26 19:05] MED LIST changes: -ALLO100T PO; -COUM5TAB PO; -OMEP20TA93 PO; -TORS20TA PO; +TORS5TAB2 PO; +WARF-18 PO; +WARF-23 PO
[2017-11-26 19:06] VITALS: BP 146/87; PULSE 87; RESP 16; TEMP 99; O2SAT 98
[2017-11-26 19:30] VITALS: BP 146/78; PULSE 77; RESP 16; O2SAT 98
--- NOTE | 2017-11-26 19:44 | PD ---
HPI Chief Complaint: Medical Clearance Time Seen by Provider: 19:41 Travel History International Travel<30 days: No Contact w/Intl Traveler<30days: No Traveled to known affect area: No History of Present Illness HPI 67-year-old male patient with history of atrial fibrillation currently on Coumadin, CHF currently on furosemide, hypertension, follows up with a loss claim clerk, seen them 2 days ago and was doing well according to cardiology, here because he states that his blood pressure was elevated today of 140/76. He was concerned because he thought his blood pressure may have been up. He states that he did have an episode of lightheadedness lasting about half an hour but is now gone. He denies any chest pains, shortness of breath, or any other symptoms. Modifying Factors: None Associated Signs & Symptoms: Worried about his elevated blood pressure, episodes of lightheadedness Risk Factors: None PFSH Past Medical History Hx Anticoagulant Therapy: Yes Arthritis: Yes Asthma: No Atrial Fibrillation: Yes Autoimmune Disease: No Heart Rhythm Problems: Yes Cancer: No Cardiac Catheterization: Yes Cardiomyopathy: Yes Cardiovascular Problems: Yes High Cholesterol: Yes Chest Pain: Yes (cardiomyopathy) Congestive Heart Failure: Yes COPD: No Cerebrovascular Accident: No Diabetes: No Endocrine: No Gastrointestinal Disorders: No GERD: No Genitourinary: Yes Headaches: No Hiatal Hernia: No Heparin Induced Thrombocytopen: No Hypertension: No Implanted Vascular Access Dvce: Yes Kidney Stones: No Musculoskeletal: No Neurologic: No Psychiatric: No Reproductive: No Respiratory: No Migraines: No Seizures: No Sickle Cell Disease: No Sleep Apnea: No Thyroid Disease: No Ulcer: No Past Surgical History Abdominal Surgery: No AICD: Yes Body Medical Devices: AICD Cardiac Surgery: Yes (AICD PLACED) Ear Surgery: No Endocrine Surgery: No Eye Surgery: No Genitourinary Surgery: No Neurologic Surgery: No Oral Surgery: Yes Valve Replacement: Yes (mvr) Other Surgery: Yes Social History Alcohol Use: Yes (social) Tobacco Use: No Substance Use: No Allergies-Medications (Allergen,Severity, Reaction): Coded Allergies: No Known Allergies (Verified , 11/26/17) Reported Meds & Prescriptions Reported Meds & Active Scripts Active Torsemide 5 Mg Tab 10 Mg PO BID@18 30 Days Potassium Chloride ER (Potassium Chloride) 20 Meq Tab 20 Meq PO TID 30 Days Amiodarone (Amiodarone HCl) 200 Mg Tab 200 Mg PO BID 30 Days Take 200mg daily starting on 07/06 Metoprolol Succinate ER 24 HR (Metoprolol Succinate) 50 Mg Tab 50 Mg PO BID 30 Days Extended release tabs. one tab by mouth twice daily Reported Warfarin 5 Mg Tab 5 Mg PO SUTUTHSA Warfarin 2.5 Mg Tab 2.5 Mg PO MOWEFR Lisinopril 2.5 Mg Tab 2.5 Mg PO DAILY Folic Acid 0.8 Mg Tab 800 Mcg PO DAILY Ferrous Sulfate 325 Mg (65 Mg Iron) Tablet 325 Mg PO BIDPC Atorvastatin (Atorvastatin Calcium) 40 Mg Tab 40 Mg PO HS Aspirin 81 Mg Chew 81 Mg CHEW DAILY Review of Systems Except as stated in HPI: all other systems reviewed are Neg Physical Exam Narrative GENERAL: Pleasant well-developed elderly male patient currently not in acute distress. Awake and oriented 3. SKIN: Focused skin assessment warm/dry. HEAD: Atraumatic. Normocephalic. EYES: Pupils equal and round. No scleral icterus. No injection or drainage. ENT: No nasal bleeding or discharge. Mucous membranes pink and moist. NECK: Trachea midline. No JVD. Supple. CARDIOVASCULAR: Regular rate and rhythm. No murmur appreciated. RESPIRATORY: No accessory muscle use. Clear to auscultation. Breath sounds equal bilaterally. GASTROINTESTINAL: Abdomen soft, non-tender, nondistended. Hepatic and splenic margins not palpable. MUSCULOSKELETAL: No obvious deformities. No clubbing. No cyanosis. No edema. NEUROLOGICAL: Awake and alert. No obvious cranial nerve deficits. Motor grossly within normal limits. Normal speech. PSYCHIATRIC: Appropriate mood and affect; insight and judgment normal. Data Data Last Documented VS Vital Signs Date Time Temp Pulse Resp B/P (MAP) Pulse Ox O2 Delivery O2 Flow Rate FiO2 11/26/17 19:30 77 16 146/78 (100) 98 11/26/17 19:06 99.0 Room Air Orders Orders Electrocardiogram (11/26/17 19:41) [facility] Medical Decision Making Medical Screen Exam Complete: Yes Emergency Medical Condition: Yes Medical Record Reviewed: Yes Interpretation(s) EKG shows atrial fibrillation at a rate of 70 bpm with a left bundle branch block pattern. No signs of acute ST elevations or depressions. Differential Diagnosis Elevated blood pressure, episode of dizziness Narrative Course EKG did not show any signs of acute dysrhythmias. He is fairly asymptomatic currently. Blood pressure is only mildly elevated at this point I would not change any medications based on the current blood pressure. He is asymptomatic now, had an episode of lightheadedness. I have offered to do lab work on him for further evaluation but he declines at this time stating he just had it done 2 days ago by his physician and states that they were satisfied with that. At this point, my plan would be to release him with follow-up to primary care doctor. Return for new issues as needed. The plan has been discussed with him and he states understanding. Diagnosis Primary Impression: Chronic hypertension Disposition: 01 DISCHARGE HOME Condition: Stable Alice Cody MD Nov 26, 2017 19:44
--- NOTE | 2017-11-27 06:49 | EKG ---
Date Performed: 11/26/2017 Time Performed: 19:57:23 PTAGE: 67 years EKG: ATRIAL FIBRILLATION LEFT AXIS DEVIATION LEFT BUNDLE BRANCH BLOCK ABNORMAL ECG PREVIOUS TRACING : 11/06/2017 06.49 No significant change from previous tracing noted. DOCTOR: Luis Felipe Palma Interpretating Date/Time 11/27/2017 06:49:17
== END 2017-11-26 20:33 | disposition home or self-care (01) ==
LOC: NEPC 19:05
DX: I11.0 Hypertensive heart disease with heart failure (principal); I50.9 Heart failure, unspecified; E78.00 Pure hypercholesterolemia, unspecified; I48.91 Unspecified atrial fibrillation; Z79.01 Long term (current) use of anticoagulants
CPT/HCPCS: 93005

== ENCOUNTER 2017-11-29 16:14 | Emergency (ER) | payer BC, MEDICARE ==
[~2017-11-29] VITALS: Ht 172.7 cm; Wt 76.8 kg
[2017-11-29 16:16] VITALS: BP 124/81; PULSE 77; RESP 16; TEMP 97.8; O2SAT 100
[2017-11-29 16:57] LABS: AUTOMATED NEUTROPHIL # 3.1 TH/MM3 (1.8-7.7); BASOPHIL # 0.1 TH/MM3 (0-0.2); BASOPHIL % 0.8 % (0.0-2.0); EOSINOPHIL % 0.5 % (0.0-4.0); HEMATOCRIT 37.7 % (39.0-51.0); HEMOGLOBIN 12.9 GM/DL (13.0-17.0); LYMPH % 13.9 % (9.0-44.0); LYMPHOCYTE # 0.9 TH/MM3 (1.0-4.8); MEAN CELL VOLUME 94.2 FL (80.0-100.0); MEAN CORPUSCULAR HEMOGLOBIN 32.2 PG (27.0-34.0); MEAN CORPUSCULAR HGB CONC 34.2 % (32.0-36.0); MONO % 38.8 % (0.0-8.0); MONOCYTE # 2.6 TH/MM3 (0-0.9); PLATELET COUNT 171 TH/MM3 (150-450); RED CELL DISTRIBUTION WIDTH 15.1 % (11.6-17.2); WHITE BLOOD COUNT 6.7 TH/MM3 (4.0-11.0)
[2017-11-29 17:05] LABS: INTERNATIONAL NORMALIZED RATIO 4.1 RATIO; PROTHROMBIN TIME - PATIENT 40.9 SEC (9.8-11.6)
[2017-11-29 17:06] VITALS: BP 131/75; PULSE 65; RESP 19; O2SAT 96
[2017-11-29] MEDS ORDERED: AMIO200T PO (17:13)
[2017-11-29] MEDS ORDERED: AMIO400T PO (17:13)
[2017-11-29 17:14] LABS: BICARBONATE 30.3 MEQ/L (21.0-32.0); CALCIUM 9.1 MG/DL (8.5-10.1); CREATININE 3.19 MG/DL (0.60-1.30)
[2017-11-29 17:18] LABS: TROPONIN I 0.02 NG/ML (0.02-0.05)
--- NOTE | 2017-11-29 17:32 | RADRPT ---
EXAM DATE/TIME: 11/29/2017 17:13 [facility] COMPARISON: CHEST SINGLE AP, November 05, 2017, 17:28. INDICATIONS : Chest pain. MEDICAL HISTORY : Myocardial infarction. Congestive heart failure. Hypercholesterolemia. Syncope. Cardiomyopathy. Atria l fibrillation. Renal disease. Arthritis. SURGICAL HISTORY : CABG. Pacemaker. Valve replacement. ENCOUNTER: Initial ACUITY: 1 day PAIN SCORE: 1/10 LOCATION: Bilateral chest FINDINGS: Frontal and lateral views of the chest demonstrate enlargement of the cardiac silhouette in this lidia ent post median sternotomy. Left chest wall pacing device is present with single lead tip anterior to the sternum. There has been prior valve for placement. Multiple EKG lines overlie the patient. No pl eural effusion, airspace consolidation, or pneumothorax is identified. There is mild wedge-shaped com pression deformity of what is thought to be T12. CONCLUSION: 1. Stable enlargement of the cardiac silhouette. No acute pulmonary abnormality is seen. 2. Mild wedge-shaped compression deformity of one of the vertebral bodies, possibly T12. This is of u ncertain chronicity. Toni Byrd MD on November 29, 2017 at 17:30 Board Certified Radiologist. This report was verified electronically.
[2017-11-29] MEDS ORDERED: SODIUM CHLOR 0.9% 1000 ML INJ 500 ML IV ONE (18:15)
[2017-11-29] MEDS ORDERED: SODIUM CHLORID 0.9% 500 ML INJ 500 ML IV ONE (18:15)
--- NOTE | 2017-11-29 18:19 | PD ---
HPI Chief Complaint: Chair Springer Problem Time Seen by Provider: 17:48 Travel History International Travel<30 days: No Contact w/Intl Traveler<30days: No Traveled to known affect area: No History of Present Illness HPI 67-year-old male with a history of cardiomyopathy, atrial fibrillation on Coumadin, mechanical AVR, ventricular tachycardia, and presents emergency department complaining of an AICD activation that occurred approximately 2-3 hours ago. Patient states that he was sitting at his desk when this occurred. He denies chest pain, shortness of breath, nausea, vomiting. Denies any others symptoms at the onset of this occurrence. States that this went off approximately 1 week ago, went to the ED, and was advised to follow-up with cardiology. Note that his device was not interrogated at that time. Patient followed up with cardiology and they made some changes to his medication. States he had a stress test approximately 1 year ago. He follows Dr. Brush. He apparently called Dr. Brush's office today and advised to come to the emergency department for device interrogation. PFSH Past Medical History Hx Anticoagulant Therapy: Yes (COUMADIN) Arthritis: Yes Asthma: No Atrial Fibrillation: Yes Autoimmune Disease: No Heart Rhythm Problems: Yes Cancer: No Cardiac Catheterization: Yes Cardiomyopathy: Yes Cardiovascular Problems: Yes High Cholesterol: Yes Chest Pain: Yes (cardiomyopathy) Congestive Heart Failure: Yes COPD: No Cerebrovascular Accident: No Diabetes: No Endocrine: No Gastrointestinal Disorders: No GERD: No Genitourinary: Yes Headaches: No Hiatal Hernia: No Heparin Induced Thrombocytopen: No Hypertension: No Implanted Vascular Access Dvce: Yes Kidney Stones: No Musculoskeletal: No Neurologic: No Psychiatric: No Reproductive: No Respiratory: No Migraines: No Seizures: No Sickle Cell Disease: No Sleep Apnea: No Thyroid Disease: No Ulcer: No Tetanus Vaccination: Unknown Influenza Vaccination: No Past Surgical History Abdominal Surgery: No AICD: Yes Body Medical Devices: AICD Cardiac Surgery: Yes (AICD PLACED) Ear Surgery: No Endocrine Surgery: No Eye Surgery: No Genitourinary Surgery: No Neurologic Surgery: No Oral Surgery: Yes Valve Replacement: Yes (mvr) Other Surgery: Yes Social History Alcohol Use: Yes (OCC) Tobacco Use: No Substance Use: No Allergies-Medications (Allergen,Severity, Reaction): Coded Allergies: No Known Allergies (Verified , 11/29/17) Reported Meds & Prescriptions Reported Meds & Active Scripts Active Torsemide 5 Mg Tab 10 Mg PO BID@,18 30 Days Potassium Chloride ER (Potassium Chloride) 20 Meq Tab 20 Meq PO TID 30 Days Metoprolol Succinate ER 24 HR (Metoprolol Succinate) 50 Mg Tab 50 Mg PO BID 30 Days Extended release tabs. one tab by mouth twice daily Reported Amiodarone (Amiodarone HCl) 200 Mg Tab 200 Mg PO HS Amiodarone (Amiodarone HCl) 400 Mg Tab 400 Mg PO DAILY Warfarin 5 Mg Tab 5 Mg PO SUTUTHSA Warfarin 2.5 Mg Tab 2.5 Mg PO MOWEFR Lisinopril 2.5 Mg Tab 2.5 Mg PO DAILY Folic Acid 0.8 Mg Tab 800 Mcg PO DAILY Ferrous Sulfate 325 Mg (65 Mg Iron) Tablet 325 Mg PO BIDPC Atorvastatin (Atorvastatin Calcium) 40 Mg Tab 40 Mg PO HS Aspirin 81 Mg Chew 81 Mg CHEW DAILY Review of Systems Except as stated in HPI: all other systems reviewed are Neg Physical Exam Narrative GENERAL: Well developed, well-nourished in no apparent distress, resting comfortably but SKIN: Focused skin assessment warm/dry. HEAD: Atraumatic. Normocephalic. EYES: Pupils equal and round. No scleral icterus. No injection or drainage. ENT: No nasal bleeding or discharge. Mucous membranes pink and moist. NECK: Trachea midline. No JVD. No lymphadenopathy CARDIOVASCULAR: Irregularly irregular, rate controlled RESPIRATORY: No accessory muscle use. Clear to auscultation. Breath sounds equal bilaterally. GASTROINTESTINAL: Abdomen soft, non-tender, nondistended. No CVA tenderness MUSCULOSKELETAL: No obvious deformities. No clubbing. No cyanosis. No edema. Homans sign negative bilaterally. Device palpated at the mid anterior axillary line NEUROLOGICAL: Awake and alert. No obvious cranial nerve deficits. Motor grossly within normal limits. Normal speech. PSYCHIATRIC: Appropriate mood and affect; insight and judgment normal. Data Data Last Documented VS Vital Signs Date Time Temp Pulse Resp B/P (MAP) Pulse Ox O2 Delivery O2 Flow Rate FiO2 11/29/17 19:14 64 20 128/78 (95) Room Air 11/29/17 17:07 96 11/29/17 16:16 97.8 Orders Orders Electrocardiogram (11/29/17 16:19) Basic Metabolic Panel (Bmp) (11/29/17 16:19) Ckmb (Isoenzyme) Profile (11/29/17 16:19) Complete Blood Count With Diff (11/29/17 16:19) Prothrombin Time / Inr (Pt) (11/29/17 16:19) Act Partial Throm Time (Ptt) (11/29/17 16:19) Troponin I (11/29/17 16:19) Chest, Pa & Lat (11/29/17 16:19) Sodium Chlorid 0.9% 500 Ml Inj (Ns 500 M (11/29/17 18:15) Sodium Chlor 0.9% 1000 Ml Inj (Ns 1000 M (11/29/17 18:15) Admit Order (Ed Use Only) (11/29/17 20:33) Labs Laboratory Tests Test 11/29/17 16:41 White Blood Count 6.7 TH/MM3 Red Blood Count 4.00 MIL/MM3 Hemoglobin 12.9 GM/DL Hematocrit 37.7 % Mean Corpuscular Volume 94.2 FL Mean Corpuscular Hemoglobin 32.2 PG Mean Corpuscular Hemoglobin Concent 34.2 % Red Cell Distribution Width 15.1 % Platelet Count 171 TH/MM3 Mean Platelet Volume 10.0 FL Neutrophils (%) (Auto) 46.0 % Lymphocytes (%) (Auto) 13.9 % Monocytes (%) (Auto) 38.8 % Eosinophils (%) (Auto) 0.5 % Basophils (%) (Auto) 0.8 % Neutrophils # (Auto) 3.1 TH/MM3 Lymphocytes # (Auto) 0.9 TH/MM3 Monocytes # (Auto) 2.6 TH/MM3 Eosinophils # (Auto) 0.0 TH/MM3 Basophils # (Auto) 0.1 TH/MM3 CBC Comment AUTO DIFF Differential Comment AUTO DIFF CONFIRMED Prothrombin Time 40.9 SEC Prothromb Time International Ratio 4.1 RATIO Activated Partial Thromboplast Time 43.9 SEC Blood Urea Nitrogen 71 MG/DL Creatinine 3.19 MG/DL Random Glucose 109 MG/DL Calcium Level 9.1 MG/DL Sodium Level 138 MEQ/L Potassium Level 4.1 MEQ/L Chloride Level 100 MEQ/L Carbon Dioxide Level 30.3 MEQ/L Anion Gap 8 MEQ/L Estimat Glomerular Filtration Rate 19 ML/MIN Total Creatine Kinase 98 U/L Troponin I 0.02 NG/ML MDM Medical Decision Making Medical Screen Exam Complete: Yes Emergency Medical Condition: Yes Differential Diagnosis AICD activation, atrial fibrillation, congestive heart failure, acute kidney injury Narrative Course 67-year-old male with history of mechanical AVR, ICD, cardiomyopathy, and ventricular tachycardia presents to the emergency department after activation of his defibrillator. Patient states this occurred approximately 1 week ago and he followed up with his employee benefits manager. According to records, patient follow- up with his employee benefits manager, Dr. Brush who recommended multiple medical change medication changes. EKG shows atrial fibrillation with frequent, unifocal PVCs. Labs show anemia stable H&H 12.9 and 37.7. Potassium 4.1. Cardiac enzymes negative. BUN/creatinine 19/3.19, up from 34/1.95 11/06/2017. INR 4.1. Goal 2.5-3.5 for Mechanical AVR Chest x-ray shows stable enlargement of the cardiac silhouette. No acute pulmonary abnormality is seen. Mild wedge-shaped compression deformity of 1 of the vertebral brought bodies possibly T12. This is of uncertain chronicity. According to the note from November 06, 2017, appears that patient's medications were changed by his employee benefits manager. It appears that amiodarone was increased to 200 mg twice a day and metoprolol 50 mg twice a day. Potassium increased to 60 mEq daily. There is a concern that cause of this MICHAEL is from amiodarone. This note also mentioned patient wanted to leave despite recommendations to stay in the hospital. Throughout the visit, patient stated that she that he would not stay for an observation. That he prefers an admission. After reviewing the case with case management, patient did meet admission criteria. Admitted the patient under Dr. Cervantes and patient decided he did not want to stay. I discussed his condition with the patient and his at length and explained that his kidney function could decline further and contribute to his demise. Patient stated he would "rolled the dice". Says he has an appointment with [facility] on Tuesday and that he would follow-up with them. Pt says he has a history of kidney fluctuations. I spoke with the [employer] rep who stated that the interrogation demonstrated "noise" which likely set off his defibrillator. There was no obvious ventricular tachycardia or concerning arrhythmias. Patient will follow up with his employee benefits manager and primary care physician. AMA: The risks of leaving against medical advice without further evaluation treatment were discussed with the patient. These risks include cardiac dysfunction, cardiac dysrhythmia, possible heart attack, possible stroke or . The patient indicated understanding of these risks and appeared to have the capacity to make this decision. Diagnosis Primary Impression: MICHAEL (acute kidney injury) Additional Impression: Defibrillator discharge Admitting Information Admitting Physician Requests: Admit Disposition: 07 AGAINST MEDICAL ADVICE Condition: Stable Christy De Santiago Nov 29, 2017 18:19
[2017-11-29 19:14] VITALS: BP 128/78; PULSE 64; RESP 20
--- NOTE | 2017-11-30 12:32 | EKG ---
Date Performed: 11/29/2017 Time Performed: 16:34:39 PTAGE: 67 years EKG: ATRIAL FIBRILLATION WITH ABERRANT CONDUCTION OR VENTRICULAR PREMATURE COMPLEXES MARKED LEFT AXIS DEVIATION LEFT BUNDLE BRANCH BLOCK ABNORMAL ECG PREVIOUS TRACING : 11/26/2017 19.57 Since the prior tracing, there has been no significant garcia DOCTOR: Sen Kirby Interpretating Date/Time 11/30/2017 12:30:07
== END 2017-11-29 21:55 | disposition left against medical advice (07) ==
LOC: NEPC 16:14 → UNDOADMIN 20:34 → NEDA 20:34 → NEPC 21:55 → UNDODISIN 21:55
DX: Z13.6 Encounter for screening for cardiovascular disorders (principal); Z53.21 Procedure and treatment not carried out due to patient leaving prior to being seen by health care provider; N17.9 Acute kidney failure, unspecified; I48.91 Unspecified atrial fibrillation; I42.9 Cardiomyopathy, unspecified; I50.9 Heart failure, unspecified; Z79.01 Long term (current) use of anticoagulants; Z95.810 Presence of automatic (implantable) cardiac defibrillator
CPT/HCPCS: 71046; 80048; 82550; 84484; 85025; 85610; 85730; 93005; 96360; 96361; 99285; J7030; J7040